=== PATIENT | female | born 1945 | race Caucasian/White ===

== ENCOUNTER 2018-03-05 17:51 | Inpatient (IN) | payer MEDICARE ==
[~2018-03-05 17:51] MED LIST: ISOVUE-370 76%-LOCM 1 ML ONE
[2018-03-05] MEDS ORDERED: Ondansetron HCl/PF 4 MG/2 ML Vial ONE (18:15)
[2018-03-05 18:38] LABS: #Eosinphils 0.1 thou/uL (0.0-0.7); #Lymphocytes 1.3 thou/uL (1.20-3.40); #Neutrophils 13.9 thou/uL (1.40-6.50); %Basophils 0.3 % (0.0-1.0); %Eosinophils 0.5 % (0.0-10.0); %Lymphocytes 7.8 % (21.0-51.0); %Monocytes 5.9 % (0.0-10.0); %Neutrophils 85.6 % (42.0-75.0); Hemoglobin 14.3 g/dL (12.0-16.0); Mean Corpuscular HGB CONC 34.5 g/dL (32.0-36.0); Mean Corpuscular Hemoglobin 30.9 pg (27.0-31.0); Mean Corpuscular Volume 89.7 fL (78.0-98.0); Mean Platelet Volume 8.6 fL (7.4-10.4); Platelet Count 226 thou/uL (130-400); RBC Distribution Width 12.2 % (11.5-14.5); Red Blood Cell (RBC) Count 4.61 mill/uL (4.20-5.40); White Blood Cell (WBC) Count 16.3 thou/uL (4.8-10.8)
[2018-03-05] MEDS ORDERED: Promethazine HCl 25 MG/ML VIAL ONE (18:51)
[2018-03-05 19:00] LABS: ALT (SGPT) 24 U/L (8-55); AST (SGOT) 25 U/L (5-34); Albumin 3.8 g/dL (3.4-4.8); Alkaline Phosphatase 87 U/L (40-150); Anion Gap 13 mmol/L (10-20); BUN (Urea Nitrogen) 20 mg/dL (9.8-20.1); Bilirubin, Total 0.5 mg/dL (0.2-1.2); Calc. Creatinine Clearance 0 mL/min (70-130); Calcium 10.5 mg/dL (7.8-10.44); Carbon Dioxide 22 mmol/L (23-31); Chloride 105 mmol/L (98-107); Estimated GFR-MDRD 75; Globulin 2.6 g/dL (2.4-3.5); Glucose 144 mg/dL (83-110); Lipase 519 U/L (8-78); Potassium 4.3 mmol/L (3.5-5.1); Protein, Total 6.4 g/dL (6.0-8.3); Sodium 136 mmol/L (136-145)
[2018-03-05 19:05] LABS: CKMB 3.2 ng/mL (0-6.6); Troponin I Less than 0.010 ng/mL (< 0.028)
--- NOTE | 2018-03-05 19:29 | RAD ---
AP VIEW OF THE CHEST: 03/05/18 INDICATION: Complains of abdominal pain, epigastric abdominal pain and chest pain. IMPRESSION: No acute cardiopulmonary abnormality. COMMENTS: Heart size is upper limits of normal. No consolidation, pleural effusion or pneumothorax is evident. No acute osseous abnormality is evident. POS: [facility]
[2018-03-05] MEDS ORDERED: Metoclopramide HCl 10 MG/2 ML VIAL ONE (19:39)
[2018-03-05 21:18] LABS: Bilirubin Negative (Negative); Blood, Urine Negative (Negative); Clarity CLEAR (Clear); Glucose, Urine (Dipstick) 250 mg/dL (Negative); Leukocyte Negative (Negative); Nitrite Negative (Negative); Protein, Urine (Dipstick) Trace mg/dL (Neg-Trace); Specific Gravity, Urine 1.028 (1.002-1.036)
--- NOTE | 2018-03-05 21:56 | CT ---
CT OF THE ABDOMEN AND PELVIS 03/05/18 COMPARISON: None. HISTORY: Nausea, vomiting and pain. TECHNIQUE: Serial axial CT imaging obtained at 5 mm intervals from lung bases through pubic symphysis with IV c ontrast. Coronal reformatted imaging obtained. FINDINGS: There is a questionable incompletely imaged nodule within the left lower lobe measuring 9 mm on image 1. Coronary arterial calcification is present, incompletely imaged. Linear density in both lung base s suggest scar and/or atelectasis. There is no free intraperitoneal air. The gallbladder is surgically absent. The hepatic parenchyma is hypodense suggesting steatosis. Splenic granulomata are noted. The pancreas is somewhat ill-defined and hypodense, particularly the region of the pancreatic head an d uncinate process. There is small volume peripancreatic fluid as well. The adrenal glands and the ki dneys demonstrate no acute findings. There are numerous hypodense lesions associated with the left ki dney, the larger lesions demonstrating Hounsfield units consistent with cysts, measuring up to 6.3 cm . Smaller hypodense left renal lesions are too small to characterize. There is inflammatory stranding and small volume fluid in the mary lou hepatis and in the periduodenal r egion. The duodenum appears thickened in the region of the pancreatic head, nonspecific. No abscess i s noted. No extraluminal gas is seen. There is no evidence for bowel obstruction. There is a lobulated complex ventral hernia in the perium bilical region with a component which contains fat in the anterior midline measuring up to 5.1 cm and a component extending into the subcutaneous fat of the mid left abdomen. This component measures 11. 4 cm and contains a large portion of the transverse colon, with no associated inflammatory change or evidence of obstruction. There is multifocal atherosclerotic calcification of the abdominal aorta and its branches. No lymphad enopathy is evident within the abdomen or pelvis. Review of the osseous structures demonstrates multilevel lumbar spine degenerative change with no wor risome lytic or blastic bone lesion. IMPRESSION: 1. Pancreas is ill-defined, especially in the region of the pancreatic head and uncinate process . There is small volume fluid adjacent to the pancreas as well as the duodenum and there is duodenal wall thickening with inflammatory change in the right upper quadrant. These findings may signify panc reatitis and/or duodenitis on the basis of peptic ulcer disease. Followup imaging following treatment is advised to exclude an underlying mass lesion. 2. Incompletely assessed pulmonary nodule within the left lower lobe for which dedicated nonemer gent followup chest CT is advised. 3. Complex ventral hernia. Code T and Code LN POS: [facility]
[2018-03-05] MEDS ORDERED: Sodium Chloride 0.9% 1,000 ML IV SCH (23:12)
[2018-03-05] MEDS ORDERED: Ondansetron HCl/PF 4 MG/2 ML Vial IVP PRN (23:14)
[2018-03-05 23:48] VITALS: BMI 33.4
[2018-03-06] MEDS ORDERED: Senokot 8.6 MG TAB PO PRN (02:45)
[2018-03-06] MEDS ORDERED: Dextrose 5% in Water 1,000 ML IV PRN (02:45)
[2018-03-06] MEDS ORDERED: ALPRAZolam 0.25 MG TAB PO PRN (02:45)
[2018-03-06] MEDS ORDERED: HumaLOG 300 UNITS/3 ML VIAL SC PRN (02:45)
[2018-03-06] MEDS ORDERED: Sodium Chloride 0.9% 1,000 ML IV SCH (02:45)
[2018-03-06] MEDS ORDERED: Guaifenesin DM 100-10/5 ML UDCUP PO PRN (02:45)
[2018-03-06] MEDS ORDERED: Dextrose 50% Abboject 50 ML SYRINGE SLOW IVP PRN (02:45)
[2018-03-06] MEDS ORDERED: Ondansetron HCl/PF 4 MG/2 ML Vial IVP PRN (02:45)
[2018-03-06] MEDS: Sodium Chloride 0.9% 1,000 ML IV SCH ×3 (03:26→19:33)
--- NOTE | 2018-03-06 04:41 | HP ---
REASON FOR ADMISSION: Possible acute pancreatitis, intractable nausea, vomiting , left upper quadrant pain. HISTORY OF PRESENT ILLNESS: The patient gives history of going to restroom and sleeping in a recliner after that. She developed right lower rib cage pain. She was nauseated and started vomiting. She did this multiple times to the point that she was dry heaving. This was unrelenting, the patient's cousin called EMS and was brought here. The right lower ribcage pain is 4-5/10 in intensity and is constant pain. Currently, has completely resolved after receiving morphine in the ER. Her last bowel movement was yesterday. She had in fact 2 times and it was normal. The patient mentions she has had 2 prior episodes of pancreatitis, but had pain in her left upper quadrant then. The first episode was in 01/2016. The second episode in 02/2017 when she had her gallbladder removed. PAST MEDICAL AND SURGICAL HISTORY: Hypertension, diabetes mellitus type 2, biliary pancreatitis with cholecystectomy done in 02/2017, prior episode of pancreatitis in 01/2016, dyslipidemia, prior stent placed in 01/2016 at [facility] in [place] for coronary artery disease, depression, anxiety, history of mild CVA in 2005, cataract surgery, x2, retina surgery as well. CURRENT MEDICATIONS: The patient is on atorvastatin 20 mg every other day, aspirin 81 mg p.o. daily, paroxetine 40 mg p.o. q.a.m., Protonix 40 mg daily, losartan 25 mg daily, Lopressor extended release 25 mg daily, metformin 1000 mg p.o. twice daily, alprazolam 0.25 mg p.o. p.r.n. for anxiety, Plavix 75 mg p.o. daily. ALLERGIES: Allergic to PENICILLIN and SULFA. PERSONAL HISTORY: Does not abuse alcohol or drugs. No history of smoking. She lives with her son and [id number] in [place]. FAMILY HISTORY: Mother at the age of 93 years. She has had history of CVA. Father of lung cancer at the age of 59 years. He was a heavy smoker and also worked with asbestos. REVIEW OF SYSTEMS: The following complete review of systems was negative, unless otherwise mentioned in the HPI or below: Constitutional: Weight loss or gain, ability to conduct usual activities. Skin: Rash, itching. Eyes: Double vision, pain. ENT/Mouth: Nose bleeding, neck stiffness, pain, tenderness. Cardiovascular: Palpitations, dyspnea on exertion, orthopnea. Respiratory: Shortness of breath, wheezing, cough, hemoptysis, fever or night sweats. Gastrointestinal: Poor appetite, abdominal pain, heartburn, nausea, vomiting, constipation, or diarrhea. Genitourinary: Urgency, frequency, dysuria, nocturia. Musculoskeletal: Pain, swelling. Neurologic/Psychiatric: Anxiety, depression. Allergy/Immunologic: Skin rash, bleeding tendency. CODE STATUS: FULL. Power of corporate associate attorney is her son, Mr. Fisher. PHYSICAL EXAMINATION: GENERAL: The patient is a 72-year-old female who is currently not in any acute distress. VITAL SIGNS: On arrival, blood pressures of 174/66, pulse 66 per minute, respiratory rate 16 per minute, temperature 97.9 degrees Fahrenheit, and saturating 84% on room air. NECK: Supple, no elevated JVD. HEENT: Eyes: Extraocular muscles intact. Pupils reacting to light. Oral cavity: Mucous membranes are dry. No exudates or congestion. CARDIOVASCULAR SYSTEM: S1, S2 heard. Regular rhythm. RESPIRATORY SYSTEM: Air entry 2+ bilateral. No rales or rhonchi. ABDOMEN: Soft, bowel sounds heard. There is mild tenderness in the right upper quadrant, otherwise no guarding or rigidity. No rebound. Bowel sounds are heard. EXTREMITIES: No peripheral edema or calf tenderness. VASCULAR SYSTEM: Peripheral pulses 1+ bilateral, no ischemic ulcerations or gangrene. CENTRAL NERVOUS SYSTEM: No gross focal deficits noted. The patient is alert, awake, oriented well. PSYCHIATRIC SYSTEM: The patient's mood is euthymic. No hallucinations or delusions. LABORATORY DATA AND X-RAY FINDINGS: EKG done shows normal sinus rhythm at 70 beats per minute. There is Q-wave seen in V1 and V2. White count of 16, H&H 14 and 41, platelet count 226 with 85% neutrophils, serum bicarbonate 22, BUN 20 , creatinine 0.7, serum glucose 144, calcium is 10.5. AST, ALT, alkaline phosphatase within normal limits, total bilirubin 0.5. Cardiac enzymes x1 is negative. Lipase is 519. Chest x-ray done shows no acute cardiopulmonary abnormalities. CT of the abdomen and pelvis done shows there is ill-defined region in the pancreatic head and uncinate process. There is small volume fluid adjacent to the pancreas as well as the duodenum and there is duodenal wall thickening with inflammatory change in the right upper quadrant. There is also pulmonary nodule seen within the left lower lobe. There is a complex ventral hernia as well. CLINICAL IMPRESSION AND PLAN: The patient will be admitted to medical floor for acute pancreatitis. She has had 2 prior episodes of likely biliary pancreatitis with cholecystectomy done in 02/2017. We will obtain ultrasound of the right upper quadrant to see for choledocholithiasis. She is wanting to drink some liquids now and we will place her on clear liquid diet. We will continue her aspirin, Plavix, Cozaar, Toprol-XL, paroxetine at her home dose. She will be on normal saline at 125 mL per hour. Lantus 15 units subcu twice daily in view of her recent imaging with contrast. Metformin will be held. We will repeat her lipase level to see if it recedes. Lipid profile will be obtained as well now. We will consult Dr. Contreras who is typing section chief for Gastroenterology to get an opinion regarding her findings on the CAT scan and her pain in the right ribcage area with intractable nausea, vomiting. Code status was discussed with her and she is a FULL CODE. Power of corporate associate attorney is her son. HEAVENLY
[2018-03-06 04:56] LABS: #Lymphocytes 1.4 thou/uL (1.20-3.40); #Monocytes 0.8 thou/uL (0.11-0.59); #Neutrophils 12.8 thou/uL (1.40-6.50); %Basophils 0.2 % (0.0-1.0); %Eosinophils 0.2 % (0.0-10.0); %Lymphocytes 9.3 % (21.0-51.0); %Monocytes 5.5 % (0.0-10.0); %Neutrophils 84.8 % (42.0-75.0); Hemoglobin 13.3 g/dL (12.0-16.0); Mean Corpuscular HGB CONC 33.6 g/dL (32.0-36.0); Mean Corpuscular Hemoglobin 30.1 pg (27.0-31.0); Mean Corpuscular Volume 89.5 fL (78.0-98.0); Mean Platelet Volume 9.1 fL (7.4-10.4); Platelet Count 238 thou/uL (130-400); RBC Distribution Width 12.3 % (11.5-14.5); Red Blood Cell (RBC) Count 4.42 mill/uL (4.20-5.40); White Blood Cell (WBC) Count 15.1 thou/uL (4.8-10.8)
[2018-03-06 05:15] LABS: ALT (SGPT) 21 U/L (8-55); AST (SGOT) 18 U/L (5-34); Albumin 3.8 g/dL (3.4-4.8); Alkaline Phosphatase 79 U/L (40-150); Anion Gap 12 mmol/L (10-20); BUN (Urea Nitrogen) 17 mg/dL (9.8-20.1); Bilirubin, Total 0.7 mg/dL (0.2-1.2); Calc. Creatinine Clearance 81 mL/min (70-130); Carbon Dioxide 27 mmol/L (23-31); Cardiac Risk 3.4 (Less than 4.5); Chloride 99 mmol/L (98-107); Cholesterol 190 mg/dl (< 200 Desired); Estimated GFR-MDRD 66; Globulin 2.4 g/dL (2.4-3.5); Glucose 339 mg/dL (83-110); HDL Cholesterol 56 mg/dL (>60 Neg Risk); LDL Cholesterol, Calculated 121 mg/dL; Lipase 207 U/L (8-78); Potassium 4.5 mmol/L (3.5-5.1); Protein, Total 6.2 g/dL (6.0-8.3); Sodium 133 mmol/L (136-145); Triglycerides 66 mg/dL (Less than 150)
[2018-03-06] MEDS: PARoxetine 20 MG TAB PO SCH (08:17)
[2018-03-06] MEDS: Famotidine 20 MG TAB PO SCH ×2 (08:19→20:25)
[2018-03-06] MEDS: Aspirin 81 mg Enteric Coated Tablet PO SCH (08:20)
[2018-03-06] MEDS: Losartan 25 MG TAB PO SCH (08:20)
[2018-03-06] MEDS: Clopidogrel Bisulfate 75 MG TAB PO SCH (08:21)
[2018-03-06] MEDS: HumaLOG 300 UNITS/3 ML VIAL SC PRN ×3 (08:30→16:36)
[2018-03-06] MEDS: Enoxaparin Sodium 40 MG/0.4 ML SYRINGE SC SCH (08:43)
[2018-03-06] MEDS: Acetaminophen 325 MG TAB PO PRN (09:26)
--- NOTE | 2018-03-06 09:39 | ULT ---
ABDOMEN ULTRASOUND: HISTORY: Abdominal pain. Questionable choledocholithiasis. Acute pancreatitis. Recent fluid noted adjacent to the head of the pancreas. COMPARISON: None. CORRELATION: CT abdomen and pelvis from 03/05/2018. TECHNIQUE: Utilizing a Multi-Hertz transducer, sonographic imaging of the abdomen is performed in the longitudin al and transverse planes. FINDINGS: The visualized aorta has a normal caliber. The visualized IVC is unremarkable. The pancreas is essentially obscured by bowel gas. The hepatic parenchyma has a normal echotexture. No hepatic masses or intrahepatic biliary dilatatio n. Contour of the hepatic margin is maintained. Right hepatic flow measures 17.3 cm. The main portal vein is patent. Appropriate directional flow. There is right renal cortical thinning. A small amount of right perirenal fluid is suspected. No hy dronephrosis. The right kidney measures 10 x 5.2 x 4.5 cm. There is nodularity associated with the left kidney. Lobulation is identified on the recent CT. There is evidence of renal cysts. Nonobstr ucting calcifications are noted in the left kidney. No hydronephrosis. The left kidney measures 11. 4 x 4 x 4.3 cm. The maintenance chief suggests a possible solid nodule in the upper pole of the right kidney. Correlating with the recent CT, a definite nodule is not appreciated. Rather, there appears to be lobulation, po ssibly due to areas of scarring in the right upper lobe. The gallbladder is surgically absent. Limited evaluation of the common bile duct. The spleen has an overall normal echotexture. A calcified granuloma is noted. The spleen measures 1 0 cm. IMPRESSION: 1. Surgically absent gallbladder. 2. Suboptimal evaluation of the pancreas. 3. Bilateral renal cortical thinning and nodularity, suggesting areas of renal scar. 4. Bilaterally, no hydronephrosis. POS: [facility]
[2018-03-06] MEDS: Insulin Glargine 15 UNITS in Pre-Filled Syringe 1 EACH SC SCH ×2 (17:11→20:25)
--- NOTE | 2018-03-06 23:29 | PDOC.PN ---
- Objective Resuscitation Status: Resuscitation Status FULL:Full Resuscitation Vital Signs & Weight: Vital Signs (12 hours) Temp Pulse Resp BP Pulse Ox 03/06/18 20:00 98.2 F 73 16 03/06/18 19:59 98.2 F 73 16 130/76 95 03/06/18 15:45 98.0 F 80 18 128/88 91 L 03/06/18 14:17 93 L 03/06/18 13:47 98.2 F 88 18 135/84 03/06/18 11:31 97.9 F 83 18 126/75 95 Weight Weight 190 lb 11.2 oz I&O: 03/05/18 03/06/18 03/07/18 06:59 06:59 06:59 Intake Total 339 Output Total 700 Balance -361 Result Diagrams: 03/06/18 04:14 03/06/18 04:14 Additional Labs: Accuchecks 03/06/18 03/06/18 03/06/18 20:00 15:47 10:48 POC Glucose 193 H 283 H 317 H 03/05/18 23:25 POC Glucose 281 H Dx/Plan - Plan * .
[2018-03-07] MEDS: Acetaminophen 325 MG TAB PO PRN (01:48)
[2018-03-07] MEDS: Enoxaparin Sodium 40 MG/0.4 ML SYRINGE SC SCH (07:39)
[2018-03-07] MEDS: Losartan 25 MG TAB PO SCH (07:52)
[2018-03-07] MEDS: PARoxetine 20 MG TAB PO SCH (07:52)
[2018-03-07] MEDS: Famotidine 20 MG TAB PO SCH (07:52)
[2018-03-07] MEDS: Insulin Glargine 15 UNITS in Pre-Filled Syringe 1 EACH SC SCH (09:11)
[2018-03-07] MEDS: Clopidogrel Bisulfate 75 MG TAB PO SCH (09:16)
[2018-03-07] MEDS: Aspirin 81 mg Enteric Coated Tablet PO SCH (09:16)
[2018-03-07 11:22] VITALS: BP 110/70; TEMP 98.4
[2018-03-07] MEDS: HumaLOG 300 UNITS/3 ML VIAL SC PRN ×2 (11:25→15:51)
--- NOTE | 2018-03-07 13:09 | CON ---
DATE OF CONSULTATION: 03/06/2018 REASON FOR CONSULTATION: Abdominal pain, abnormal CAT scan. HISTORY OF PRESENT ILLNESS: Ms. Samayoa is a 72-year-old female who was admitted to the hospital from the emergency room yesterday for about 2-3 weeks of abdominal pain. It was in the upper abdomen predominantly, sometimes it goes to her back. She states it has progressively got worse to the poin t where she was having some nausea and vomiting today and she came to the emergency room. Previously , she was eating okay, which did not bother her, but she states she really been eating well, having a good appetite. Despite this, the emergency room notes, however, she had some nausea and upset stoma ch last night. She reports she sees Dr. Damon as her primary doctor. She has not seen her about this problem as this has been new. She has not really tried any medications at home. Apparently, the natalia n in the last day or so, it gotten much worse with her having some dry heaves and vomiting at home an d relative summoned EMS, which led to her admission. She states the pain is still present despite pa in medications, but little bit better. When asked about prior bouts of this, she said that she has n ot had any episodes; however, in the admission H&P, it is noted that she stated she had previous bout s of pancreatitis twice back in 2015 and 2016, that is when her gallbladder was removed. To me, she notes that she does not recall that. She denies any weight loss. She states that she has a little bit more loose stool recently. She has had no fever or chills. PAST MEDICAL HISTORY: Hypertension, type 2 diabetes, prior pancreatitis in 02/2007, possibly some pa ncreatitis in 01/2016. She has had some coronary stent placed in the past, CVA in 2016, cataract beatriz brayan, , retina surgery. MEDICATIONS AT HOME: Atorvastatin, aspirin, paroxetine, Protonix, losartan, Lopressor, metformin, al prazolam, and Plavix, acetaminophen, and codeine. ALLERGIES: SULFA, HYDROCODONE, PENICILLIN, STRAWBERRIES. PRESENT MEDICATIONS: Tylenol, Xanax, Plavix, Lovenox, Pepcid, glucagon, Humalog, Cozaar, morphine. FAMILY HISTORY: No history of GI disorders, pancreatitis or GI malignancies. SOCIAL HISTORY: Negative for alcohol, drugs, or tobacco. REVIEW OF SYSTEMS: The patient denies stroke, headache, seizures. HEENT: She denies any eye pain, vision changes, hearing issues, throat problems, or swallowing problems or throat pain. GI: As per HPI, otherwise she denies any dysuria, frequency, urgency, melena, hematochezia, hematemesis or melen a. Respiratory: She denies any shortness of breath, chest pain, dyspnea, wheezing. Cardiac: Denie s any orthopnea, edema, palpitations, urinary symptoms, negative frequency, dysuria, urgency. Muscul oskeletal: Negative except for generalized weakness. Otherwise, review of systems as per documented by the admitting physician. PHYSICAL EXAMINATION: VITAL SIGNS: Temperature is 98, pulse 73, respirations 16, temperature 95, blood pressure 113/76. S he has been afebrile since admission. GENERAL: She is a pleasant lady. She does not know what day it is. She does know her name. She kn ows it is [facility]. She seems to be in no distress. HEENT: Oropharynx without lesions. NECK: Supple, without any adenopathy. Shows no icterus. There is no jaundice. There is no supracl avicular adenopathies. No cervical chain adenopathy. LUNGS: Clear. HEART: Regular rate and rhythm. ABDOMEN: Soft. She has mild tenderness in right lower quadrant with palpation. There is no rebound or guarding. EXTREMITIES: Reveal no clubbing, cyanosis, or edema. SKIN: Without rash or lesions. There is a scar in the lower abdomen, this is from the previous hyst erectomy. NEUROLOGIC: Intact cranial nerves. LABORATORY AND X-RAY FINDINGS: White count was 16 on admission, 15 today. Platelet count of 226 on admission, 238 today. Hemoglobin 13.3 yesterday, hemoglobin 14.3 today. Urine is normal. IMAGING STUDIES: Ultrasound was normal with no evidence of gallbladder, no ductal dilatation. CAT s can shows some inflammatory stranding involving the mary lou hepatis and this peritoneal region. There was thickening in the duodenum cystic lesion or cystic changes in the pancreatic head, it is un clear if this is related to her diet or just inflammation. There is ventral hernia in the periumbili sam region with some fat and there is colon there too, but there are no signs of obstruction, multifo sam atherosclerotic vessel disease. ASSESSMENT: Several days of abdominal pain, nausea, vomiting, upper abdomen with CAT scan changes with some infla mmation in the head of the pancreas, it is unclear with her prior history of pancreatitis, whether th is change is going to be a pseudocyst or possibly she has some type of cystic pancreatic neoplasia in the area of pancreatic mass with the duodenal wall thickening is always a possibility of a duodenal ulcer, but this is less likely. Presently, she is stable. PLAN: I would recommend an EGD tomorrow to evaluate the duodenum inflammation in this area. If this is nondiagnostic, MRCP would be the next step.
--- NOTE | 2018-03-07 13:36 | PRG ---
DATE OF SERVICE: 03/07/2019 Ms. Samayoa feels well. She wants to go home today. She is refusing EGD. PHYSICAL EXAMINATION: VITAL SIGNS: Temperature is 98.4, pulse 86, blood pressure 110/70. ABDOMEN: Soft, nontender. LUNGS: Lungs are clear. LABORATORY DATA: No labs were drawn today. ASSESSMENT: Mild pancreatitis, seemingly clinically improved; however, no labs were drawn today. I had ordered an EGD on her for today secondary to some atypical features of inflammation of the duoden al sweep, but she does not want to proceed with that and refuses this study. RECOMMENDATIONS: I think you can advance her diet. Send her home with a PPI. Alcohol avoidance. S he has a primary physician and lobby attendant in [place], [place] and she would like to follow up there. She does not need a follow up with me. I recommended that she get a followup CAT scan.
== END 2018-03-07 17:12 | disposition home or self-care (01) | DRG 440 ==
LOC: ERS 17:51 → OBSVTOIN 23:03 → 2SW 23:03 → T4-A 03-06 06:25
PROVIDERS: ADMIT Internal Medicine; ATTEND Internal Medicine
DX: K85.90 Acute pancreatitis without necrosis or infection, unspecified (principal); I10 Essential (primary) hypertension; E11.9 Type 2 diabetes mellitus without complications; F41.8 Other specified anxiety disorders; R93.3 Abnormal findings on diagnostic imaging of other parts of digestive tract; Z90.49 Acquired absence of other specified parts of digestive tract; Z86.73 Personal history of transient ischemic attack (TIA), and cerebral infarction without residual deficits; Z53.29 Procedure and treatment not carried out because of patient's decision for other reasons; Z95.5 Presence of coronary angioplasty implant and graft; Z79.02 Long term (current) use of antithrombotics/antiplatelets; Z79.4 Long term (current) use of insulin; Z79.891 Long term (current) use of opiate analgesic; Z88.5 Allergy status to narcotic agent; Z88.0 Allergy status to penicillin; Z88.7 Allergy status to serum and vaccine
CPT/HCPCS: 36415; 36416; 71045; 74177; 76700; 80053; 80061; 81003; 82553; 83690; 84484; 85025; 93005; 96365; 96375; J1650; J2270; J2405; J2550; J2765

== ENCOUNTER 2018-12-09 14:02 | Inpatient (IN) | payer MEDICARE ==
[2018-12-09] MEDS ORDERED: Zolpidem Tartrate 5 MG TAB PO PRN (16:12)
[2018-12-09] MEDS ORDERED: Dextrose 50% Abboject 50 ML SYRINGE SLOW IVP PRN (16:12)
[2018-12-09] MEDS ORDERED: Ondansetron ODT 4 MG TAB PO PRN (16:12)
[2018-12-09] MEDS ORDERED: Acetaminophen 325 MG TAB PO PRN (16:12)
[2018-12-09] MEDS ORDERED: Dextrose 5% in Water 1,000 ML IV PRN (16:12)
--- NOTE | 2018-12-09 17:46 | HP ---
PRIMARY CARE PHYSICIAN: Kathia Sabillon in [place]. She is visiting here. She was referred to the [facility] by [facility] for pancreatitis. Three days ago, she had developed nausea. She had emesis x1 with some upper back pain radiating to her back. They came and went and took some antacids with no relief. She stated it got worse every night. She had a hard chill last night and fell twice, still has some paroxysmal abdominal pain and nausea. No hematemesis. No diarrhea. She has a history of recurrent pancreatitis starting in 2015, had a cholecystectomy for pancreatitis in 2016, was admitted to our facility in the summer of 2018 with pancreatitis. She has diabetes mellitus type 2, hypertension, coronary artery disease with a stent in 2015, history of anxiety, depression, and dyslipidemia. She had a mild CVA in 2005, with no residual. PAST SURGICAL HISTORY: Surgeries include aforementioned cholecystectomy, a cardiac cath with PCI, cataract surgery, x2, and retina surgery. CURRENT MEDICATIONS: 1. Metformin 1 g twice a day. 2. Gabapenten 300 mg tid. 3. Metoprolol-XL 25 once a day. 4. Plavix 75 mg a day. 5. Aspirin 81 mg a day. 6. Paxil 40 mg a day. 7. Losartan 25 mg a day. 8. Humulin 70/30, 42 units in the morning and 22 in the p.m. 9. She takes sliding scale regular insulin. ALLERGIES: PENICILLIN AND SULFA. FAMILY HISTORY: Multiple CVAs on her mother's side. She had 2 aunts with diabetes. She had a sibling, who is with coronary artery disease. She is . Full code status. Next of kin is her son, Phillip Epperson. She is a nontobacco and non-alcohol user. REVIEW OF SYSTEMS: GENERAL: Some malaise, fatigue, and lightheadedness. She has fallen, but no syncope. She has had some headaches with the present illness. EYES: No double vision, blurred vision, or flashing of lights. EAR, NOSE, AND THROAT: No ear pain or drainage. No nasal bleeding. No trouble swallowing. CARDIAC: No chest pain, orthopnea, or paroxysmal nocturnal dyspnea. RESPIRATIONS: No cough wheezing or asthma. GASTROINTESTINAL: See present illness. GENITOURINARY: No hematuria or dysuria. MUSCULOSKELETAL: No swelling. She has chronic back and hip pain. NEUROLOGIC: As mentioned in past medical history, she had a mild CVA with no residual in the past. PSYCHIATRIC: Anxiety and depression. SKIN: She has chronic yeast infection under her breast and under her panniculus. HEME/LYMPH: No tender or swollen lymph nodes in the axilla, inguinal, cervical area. PHYSICAL EXAMINATION: GENERAL: She is alert, pleasant, cooperative lady, not in any distress at the moment. VITAL SIGNS: Blood pressure 105/62, pulse 92, respirations 20, and temperature 98.2. HEAD, EYES, EARS, NOSE, AND THROAT: Revealed pupils equal and round with implants. Extraocular movements are intact. Sclerae are white. Tympanic membranes clear. Nose is clear. Oral mucous membranes are dry. Dental hygiene is good. NECK: No jugular venous distention, adenopathy, or thyromegaly. CHEST: Clear to auscultation and percussion. HEART: Regular rate and rhythm. First and second heart sounds are clear. There are no appreciated murmurs or gallops. ABDOMEN: Mildly tender in the epigastrium. Bowel sounds are present. There are no palpable hepatosplenomegaly or other masses. No bruits. EXTREMITIES: Reveal no cyanosis, clubbing, or edema. PULSES: Carotid, radial, femoral, and dorsalis pedis pulses palpable and symmetric. SKIN: Warm and dry. She does have the aforementioned monilia like lesions under both breast and her panniculus. HEME/LYMPH: No tender or swollen lymph nodes in the axilla, inguinal, cervical area. No petechial hemorrhages. NEUROLOGIC: Cranial nerves 2 through 12 are intact. Moves all extremities. IMAGING DATA: CT of the abdomen and pelvis, some peripancreatic inflammatory stranding, scattered calcifications in the pancreas, enhancing left renal mass worrisome for recent renal cell carcinoma, apparently has been noted on previous exam. Radiology was suggested an adrenal nodule. This films were reviewed by me. A CT of the chest and thorax was also done. No suggestion of pulmonary embolus. Films reviewed by me. EKG, regular sinus rhythm, no ST-T abnormalities reviewed by me. LABORATORY DATA: Done in [place]. CBC; white count 8.5, hemoglobin 11.9, platelet count 243,000 with a mild left shift towards neutrophilia. Comprehensive metabolic profile, liver function tests normal. Lytes are normal except for a CO2 of 20, BUN 25, creatinine 1.12. Lactic acid 1.5 and lipase 291. ADMITTING DIAGNOSES: Acute relapsing pancreatitis, diabetes mellitus type 2, coronary artery disease, hypertension, acute kidney injury. PLAN: 1. Clear liquids. 2. IV fluids. 3. Accu-Chek, sliding scale. 4. Repeat CBC, basic metabolic profile, and lipase in the morning. 5. Morphine sulfate for pain. 6. Selected home medicines with sips of water. DISCUSSION: The patient with at least 4 episodes of pancreatitis now with scattered calcifications suggesting chronic relapsing pancreatitis. We will treat with the usual basic bowel rest, IV fluids, antiemetics, analgesics, and expect an observation. Job ID: [id number] [facility]
[2018-12-09] MEDS ORDERED: Morphine 4 MG/ML VIAL ONE (18:14)
[2018-12-09] MEDS: Sodium Chloride 0.9% 1,000 ML IV SCH (19:39)
[2018-12-09] MEDS: metFORMIN 500 MG TAB PO SCH (19:39)
[2018-12-09 19:45] VITALS: BMI 34.0
[2018-12-10] MEDS: Morphine 4 MG/ML VIAL SLOW IVP PRN ×5 (00:18→18:10)
[2018-12-10] MEDS: Sodium Chloride 0.9% 1,000 ML IV SCH ×3 (00:19→18:17)
[2018-12-10] MEDS: Insulin Regular 300 UNITS/3 ML VIAL SC PRN ×3 (05:50→16:43)
[2018-12-10] MEDS: Aspirin 81 mg Enteric Coated Tablet PO SCH (07:49)
[2018-12-10] MEDS: metFORMIN 500 MG TAB PO SCH ×2 (07:49→16:42)
[2018-12-10] MEDS: Clopidogrel Bisulfate 75 MG TAB PO SCH (07:49)
[2018-12-10] MEDS: PARoxetine 20 MG TAB PO SCH (07:49)
[2018-12-10] MEDS: Enoxaparin Sodium 40 MG/0.4 ML SYRINGE SC SCH (07:50)
[2018-12-10] MEDS ORDERED: Eucerin (Mineral Oil/Petrolatum,White) 30 gm Jar TOP PRN (07:53)
[2018-12-10] MEDS ORDERED: Ondansetron PF 4 MG/2 ML Vial IVP PRN (07:53)
[2018-12-10] MEDS ORDERED: Sodium Chloride 0.65% Nasal 44 ML BOT EA NARE PRN (07:53)
[2018-12-10] MEDS ORDERED: Loratadine 10 MG TAB PO PRN (07:53)
[2018-12-10] MEDS ORDERED: Artificial Tears 18 DROP/0.9 ML EA EYE PRN (07:53)
[2018-12-10] MEDS ORDERED: Cepastat Lozenges 1 LOZ PO PRN (07:53)
[2018-12-10] MEDS ORDERED: Senokot S 8.6-50 MG TAB PO PRN (07:53)
[2018-12-10] MEDS ORDERED: hydrALAZINE 20 MG/ML VIAL SLOW IVP PRN (07:53)
[2018-12-10] MEDS ORDERED: Diabetic Tussin 200 MG/10 ML UDCUP PO PRN (07:53)
[2018-12-10] MEDS ORDERED: Loperamide HCl 2 MG CAP PO PRN (07:53)
[2018-12-10 08:06] LABS: #Basophils 0.1 thou/uL (0.0-0.2); #Eosinphils 0.2 thou/uL (0.0-0.7); #Lymphocytes 1.2 thou/uL (1.20-3.40); #Monocytes 1.1 thou/uL (0.11-0.59); #Neutrophils 6.8 thou/uL (1.40-6.50); %Basophils 0.6 % (0.0-1.0); %Eosinophils 2.1 % (0.0-10.0); %Monocytes 11.7 % (0.0-10.0); %Neutrophils 72.6 % (42.0-75.0); Hemoglobin 11.6 g/dL (12.0-16.0); Mean Corpuscular HGB CONC 32.5 g/dL (32.0-36.0); Mean Corpuscular Hemoglobin 29.1 pg (27.0-31.0); Mean Corpuscular Volume 89.6 fL (78.0-98.0); Mean Platelet Volume 8.8 fL (7.4-10.4); Platelet Count 287 thou/uL (130-400); Red Blood Cell (RBC) Count 3.99 mill/uL (4.20-5.40); White Blood Cell (WBC) Count 9.3 thou/uL (4.8-10.8)
[2018-12-10] MEDS: Losartan 25 MG TAB PO SCH (08:11)
[2018-12-10 08:30] LABS: ALT (SGPT) 15 U/L (8-55); AST (SGOT) 18 U/L (5-34); Albumin 3.2 g/dL (3.4-4.8); Alkaline Phosphatase 70 U/L (40-150); Anion Gap 9 mmol/L (10-20); BUN (Urea Nitrogen) 19 mg/dL (9.8-20.1); Bilirubin, Direct 0.2 mg/dL (0.1-0.3); Bilirubin, Total 0.3 mg/dL (0.2-1.2); CRP (Inflammatory) 10.43 mg/dL (= or < 0.5); Calc. Creatinine Clearance 80 mL/min (70-130); Calcium 9.8 mg/dL (7.8-10.44); Carbon Dioxide 25 mmol/L (23-31); Chloride 106 mmol/L (98-107); Estimated GFR-MDRD 68; Glucose 181 mg/dL (83-110); Lipase 143 U/L (8-78); Magnesium 1.5 mg/dL (1.6-2.6); Phosphorus 2.3 mg/dL (2.3-4.7); Potassium 3.9 mmol/L (3.5-5.1); Sodium 136 mmol/L (136-145)
[2018-12-10] MEDS: Gabapentin 300 MG CAP PO SCH ×3 (08:34→20:21)
[2018-12-10] MEDS ORDERED: Magnesium Sulfate 2 GM in Sodium Chloride 0.9% 100 ML IVPB SCH (08:45)
[2018-12-10] MEDS ORDERED: Magnesium 2 GM/50 ML 2 GM in Premix Bag 1 BAG IVPB SCH (08:45)
[2018-12-10] MEDS: ALPRAZolam 0.25 MG TAB PO PRN (08:59)
[2018-12-10] MEDS ORDERED: Polyethylene Glycol 3350 17 GM Packet PO SCH (10:15)
--- NOTE | 2018-12-10 11:40 | PDOC.PN ---
- Subjective Encounter Start Date: 12/10/18 Encounter Start Time: 08:00 -: old records requested/rev Patient seen and examined. No new complaints. No overnight events - Objective Resuscitation Status - Order Detail: 12/09/18 16:09 Resuscitation Status Routine Resuscitation Status: FULL: Full Resuscitation MAR Reviewed: Yes Vital Signs & Weight: Vital Signs (12 hours) Temp Pulse Resp BP Pulse Ox 12/10/18 08:00 98.3 F 88 18 108/52 L 93 L 12/10/18 04:00 97.6 F 82 18 112/64 94 L 12/10/18 00:00 98 F 84 18 118/70 93 L Weight Weight 186 lb 4 oz I&O: 12/09/18 12/10/18 12/11/18 06:59 06:59 06:59 Intake Total 1979 Balance 1979 Result Diagrams: 12/10/18 07:33 12/10/18 07:33 Additional Labs: Accuchecks 12/10/18 12/09/18 04:49 19:38 POC Glucose 206 H 108 Phys Exam - Physical Examination Constitutional: NAD HEENT: PERRLA, moist MMs, sclera anicteric Neck: no JVD, supple Respiratory: no wheezing, no rales, no rhonchi Cardiovascular: RRR, no significant murmur, no rub Gastrointestinal: soft, non-tender, no distention, positive bowel sounds Musculoskeletal: no edema, pulses present Neurological: non-focal, normal sensation Lymphatic: no nodes Psychiatric: normal affect, A&O x 3 Skin: no rash, normal turgor Dx/Plan (1) Acute pancreatitis Code(s): K85.90 - ACUTE PANCREATITIS WITHOUT NECROSIS OR INFECTION, UNSP Status: Acute (2) Hypomagnesemia Code(s): E83.42 - HYPOMAGNESEMIA Status: Acute (3) CAD (coronary artery disease) Code(s): I25.10 - ATHSCL HEART DISEASE OF [place] CORONARY ARTERY W/O ANG PCTRS Status: Chronic (4) Diabetes type 2, controlled Code(s): E11.9 - TYPE 2 DIABETES MELLITUS WITHOUT COMPLICATIONS Status: Chronic (5) Dyslipidemia Code(s): E78.5 - HYPERLIPIDEMIA, UNSPECIFIED Status: Chronic (6) Hypertension Code(s): I10 - ESSENTIAL (PRIMARY) HYPERTENSION Status: Chronic (7) Obesity (BMI 30.0-34.9) Code(s): E66.9 - OBESITY, UNSPECIFIED Status: Chronic - Plan cont current plan of care, PT/OT * advance to full liquid diet * replace magnesium * pain controlled * medication reviewed as below * symptomatic treatment * start PT. Review of Systems - Review of Systems ENT: negative: Ear Pain, Ear Discharge, Nose Pain, Nose Discharge, Nose Congestion, Mouth Pain, Mouth Swelling, Throat Pain, Throat Swelling, Other Respiratory: negative: Cough, Dry, Shortness of Breath, Hemoptysis, SOB with Excertion, Pleuritic Pain, Sputum, Wheezing Cardiovascular: negative: chest pain, palpitations, orthopnea, paroxysmal nocturnal dyspnea, edema, light headedness, other Gastrointestinal: negative: Nausea, Vomiting, Abdominal Pain, Diarrhea, Constipation, Melena, Hematochezia, Other Genitourinary: negative: Dysuria, Frequency, Incontinence, Hematuria, Retention , Other Musculoskeletal: Back Pain. negative: Neck Pain, Shoulder Pain, Arm Pain, Hand Pain, Leg Pain, Foot Pain, Other - Medications/Allergies Allergies/Adverse Reactions: Allergies Allergy/AdvReac Type Severity Reaction Status Date / Time hydrocodone Allergy Emesis Verified 12/09/18 19:46 Penicillins Allergy Rash Verified 12/09/18 19:46 strawberry Allergy Verified 12/09/18 19:46 Sulfa (Sulfonamide Allergy Emesis Verified 12/09/18 19:46 Antibiotics) Medications: Current Medications Acetaminophen (Tylenol) 650 mg PO Q4H PRN PRN Reason: Headache/Fever/Mild Pain (1-3) Alprazolam (Xanax) 0.25 mg PO DAILY PRN PRN Reason: Anxiety Last Admin: 12/10/18 08:59 Dose: 0.25 mg Artificial Tears (Tears Naturale) 2 drop EA EYE PRN PRN PRN Reason: Dry Eyes Aspirin (Ecotrin) 81 mg PO DAILY [facility] Last Admin: 12/10/18 07:49 Dose: 81 mg Atorvastatin Calcium (Lipitor) 10 mg PO HS [facility] Clopidogrel Bisulfate (Plavix) 75 mg PO DAILY [facility] Last Admin: 12/10/18 07:49 Dose: 75 mg Dextrose/Water (Dextrose 50%) 25 gm SLOW IVP PRN PRN PRN Reason: Hypoglycemia Enoxaparin Sodium (Lovenox) 40 mg SC 0900 [facility] Last Admin: 12/10/18 07:50 Dose: 40 mg Gabapentin (Neurontin) 300 mg PO TID [facility] Last Admin: 12/10/18 08:34 Dose: 300 mg Glucagon (Glucagon) 1 mg IM PRN PRN PRN Reason: Hypoglycemia Guaifenesin (Robitussin Sf) 200 mg PO Q4H PRN PRN Reason: Cough Hydralazine HCl (Apresoline) 10 mg SLOW IVP Q4H PRN PRN Reason: SBP > 180 and HR < 70 Dextrose/Water (D5w) 1,000 mls @ 0 mls/hr IV .Q0M PRN PRN Reason: Hypoglycemia Sodium Chloride (Normal Saline 0.9%) 1,000 mls @ 125 mls/hr IV .Q8H [facility] Last Admin: 12/10/18 10:17 Dose: 1,000 mls Insulin Human Regular (Humulin R) 0 units SC .MODERATE SLIDING SC PRN PRN Reason: Moderate Correctional Scale Last Admin: 12/10/18 05:50 Dose: 4 unit Loperamide HCl (Imodium) 2 mg PO PRN PRN PRN Reason: Diarrhea/Loose Stools Loratadine (Claritin) 10 mg PO DAILYPRN PRN PRN Reason: Sinus Symptoms Losartan Potassium (Cozaar) 25 mg PO DAILY [facility] Last Admin: 12/10/18 08:11 Dose: Not Given Metformin HCl (Glucophage) 1,000 mg PO BID-[facility] Last Admin: 12/10/18 07:49 Dose: 1,000 mg Metoprolol Succinate (Toprol Xl) 25 mg PO DAILY [facility] Last Admin: 12/10/18 08:11 Dose: Not Given Mineral Oil/White Petrolatum (Eucerin Cream) 0 gm TOP BIDPRN PRN PRN Reason: Dry Skin Morphine Sulfate (Morphine) 4 mg SLOW IVP Q4H PRN PRN Reason: Pain Last Admin: 12/10/18 10:07 Dose: 4 mg Nystatin (Mycostatin Powder) 0 gm TOP BID [facility] Ondansetron HCl (Zofran Odt) 4 mg PO Q6H PRN PRN Reason: Nausea/Vomiting Last Admin: 12/09/18 19:53 Dose: 4 mg Ondansetron HCl (Zofran) 4 mg IVP Q6H PRN PRN Reason: Nausea/Vomiting Last Admin: 12/10/18 09:00 Dose: 4 mg Pantoprazole Sodium (Protonix) 40 mg PO DAILY [facility] Last Admin: 12/10/18 08:34 Dose: 40 mg Paroxetine HCl (Paxil) 40 mg PO DAILY [facility] Last Admin: 12/10/18 07:49 Dose: 40 mg Polyethylene Glycol (Miralax) 17 gm PO BID [facility] Polyethylene Glycol (Miralax) 17 gm PO NOW [facility] Stop: 12/10/18 12:15 Last Admin: 12/10/18 10:52 Dose: 17 gm Senna/Docusate Sodium (Senokot S) 2 tab PO BID PRN PRN Reason: Constipation Last Admin: 12/10/18 08:59 Dose: 2 tab Sodium Chloride ([place] Nasal [place] 0.65%) 0 ml EA NARE QIDPRN PRN PRN Reason: Nasal Congestion Sodium Chloride (Flush - Normal Saline) 10 ml IVF Q12HR [facility] Last Admin: 12/10/18 09:03 Dose: Not Given Sodium Chloride (Flush - Normal Saline) 10 ml IVF PRN PRN PRN Reason: Saline Flush Throat Lozenges (Cepastat Lozenges) 1 lupillo PO Q2H PRN PRN Reason: Sore Throat Zolpidem Tartrate (Ambien) 5 mg PO HSPRN PRN PRN Reason: Insomnia
[2018-12-10] MEDS: Atorvastatin Calcium 10 MG TAB PO SCH (20:21)
[2018-12-10] MEDS: Polyethylene Glycol 3350 17 GM Packet PO SCH (20:21)
[2018-12-10] MEDS: Nystatin Powder 15 GM BOT TOP SCH (20:22)
[2018-12-11] MEDS: Morphine 4 MG/ML VIAL SLOW IVP PRN ×6 (00:12→21:18)
[2018-12-11] MEDS: Sodium Chloride 0.9% 1,000 ML IV SCH ×4 (00:13→20:08)
[2018-12-11] MEDS: Insulin Regular 300 UNITS/3 ML VIAL SC PRN ×3 (05:28→17:05)
[2018-12-11] MEDS: Clopidogrel Bisulfate 75 MG TAB PO SCH (08:42)
[2018-12-11] MEDS: metFORMIN 500 MG TAB PO SCH ×2 (08:42→17:05)
[2018-12-11] MEDS: Gabapentin 300 MG CAP PO SCH ×3 (08:43→20:09)
[2018-12-11] MEDS: Polyethylene Glycol 3350 17 GM Packet PO SCH ×2 (08:43→20:08)
[2018-12-11] MEDS: PARoxetine 20 MG TAB PO SCH (08:43)
[2018-12-11] MEDS: Losartan 25 MG TAB PO SCH ×2 (08:43→09:03)
[2018-12-11] MEDS: Enoxaparin Sodium 40 MG/0.4 ML SYRINGE SC SCH (08:43)
[2018-12-11] MEDS: Aspirin 81 mg Enteric Coated Tablet PO SCH (08:43)
[2018-12-11] MEDS: Nystatin Powder 15 GM BOT TOP SCH ×2 (08:44→20:10)
[2018-12-11 08:54] LABS: #Eosinphils 0.2 thou/uL (0.0-0.7); #Lymphocytes 1.6 thou/uL (1.20-3.40); #Monocytes 0.7 thou/uL (0.11-0.59); #Neutrophils 5.8 thou/uL (1.40-6.50); %Basophils 0.2 % (0.0-1.0); %Eosinophils 2.6 % (0.0-10.0); %Monocytes 8.7 % (0.0-10.0); %Neutrophils 69.6 % (42.0-75.0); Hemoglobin 11.5 g/dL (12.0-16.0); Mean Corpuscular HGB CONC 31.6 g/dL (32.0-36.0); Mean Corpuscular Hemoglobin 28.7 pg (27.0-31.0); Mean Corpuscular Volume 90.6 fL (78.0-98.0); Mean Platelet Volume 8.5 fL (7.4-10.4); Platelet Count 283 thou/uL (130-400); RBC Distribution Width 11.9 % (11.5-14.5); Red Blood Cell (RBC) Count 4.01 mill/uL (4.20-5.40); White Blood Cell (WBC) Count 8.3 thou/uL (4.8-10.8)
[2018-12-11 09:21] LABS: Anion Gap 11 mmol/L (10-20); BUN (Urea Nitrogen) 6 mg/dL (9.8-20.1); Calc. Creatinine Clearance 93 mL/min (70-130); Calcium 9.2 mg/dL (7.8-10.44); Carbon Dioxide 24 mmol/L (23-31); Chloride 104 mmol/L (98-107); Estimated GFR-MDRD 80; Glucose 229 mg/dL (83-110); Lipase 102 U/L (8-78); Potassium 4.5 mmol/L (3.5-5.1); Sodium 134 mmol/L (136-145)
--- NOTE | 2018-12-11 09:41 | PDOC.PN ---
- Subjective Encounter Start Date: 12/11/18 Encounter Start Time: 08:30 Patient seen and examined. No new complaints. No overnight events - Objective Resuscitation Status - Order Detail: 12/09/18 16:09 Resuscitation Status Routine Resuscitation Status: FULL: Full Resuscitation MAR Reviewed: Yes Vital Signs & Weight: Vital Signs (12 hours) Temp Pulse Resp BP Pulse Ox 12/11/18 08:00 97.6 F 101 H 18 132/80 94 L Weight Weight 186 lb 4 oz I&O: 12/10/18 12/11/18 12/12/18 06:59 06:59 06:59 Intake Total 1979 4358 Balance 1979 4358 Result Diagrams: 12/11/18 08:36 12/11/18 08:36 Additional Labs: Accuchecks 12/11/18 12/10/18 12/10/18 05:30 19:32 16:32 POC Glucose 211 H 267 H 267 H 12/10/18 11:33 POC Glucose 253 H Phys Exam - Physical Examination Constitutional: NAD HEENT: PERRLA, moist MMs, sclera anicteric Neck: no JVD, supple Respiratory: no wheezing, no rales, no rhonchi Cardiovascular: RRR, no significant murmur, no rub Gastrointestinal: soft, non-tender, no distention, positive bowel sounds Musculoskeletal: no edema, pulses present Neurological: non-focal, normal sensation, moves all 4 limbs Lymphatic: no nodes Psychiatric: normal affect, A&O x 3 Skin: no rash, normal turgor Dx/Plan (1) Acute pancreatitis Code(s): K85.90 - ACUTE PANCREATITIS WITHOUT NECROSIS OR INFECTION, UNSP Status: Acute (2) Hypomagnesemia Code(s): E83.42 - HYPOMAGNESEMIA Status: Acute (3) CAD (coronary artery disease) Code(s): I25.10 - ATHSCL HEART DISEASE OF [place] CORONARY ARTERY W/O ANG PCTRS Status: Chronic (4) Diabetes type 2, controlled Code(s): E11.9 - TYPE 2 DIABETES MELLITUS WITHOUT COMPLICATIONS Status: Chronic (5) Dyslipidemia Code(s): E78.5 - HYPERLIPIDEMIA, UNSPECIFIED Status: Chronic (6) Hypertension Code(s): I10 - ESSENTIAL (PRIMARY) HYPERTENSION Status: Chronic (7) Obesity (BMI 30.0-34.9) Code(s): E66.9 - OBESITY, UNSPECIFIED Status: Chronic - Plan cont current plan of care, PT/OT * medication reviewed as below * symptomatic treatment * continue full liquid diet * pain control * reduce IVF. Review of Systems - Review of Systems ENT: negative: Ear Pain, Ear Discharge, Nose Pain, Nose Discharge, Nose Congestion, Mouth Pain, Mouth Swelling, Throat Pain, Throat Swelling, Other Respiratory: negative: Cough, Dry, Shortness of Breath, Hemoptysis, SOB with Excertion, Pleuritic Pain, Sputum, Wheezing Cardiovascular: negative: chest pain, palpitations, orthopnea, paroxysmal nocturnal dyspnea, edema, light headedness, other Gastrointestinal: negative: Nausea, Vomiting, Abdominal Pain, Diarrhea, Constipation, Melena, Hematochezia, Other Genitourinary: negative: Dysuria, Frequency, Incontinence, Hematuria, Retention , Other Musculoskeletal: Back Pain. negative: Neck Pain, Shoulder Pain, Arm Pain, Hand Pain, Leg Pain, Foot Pain, Other - Medications/Allergies Allergies/Adverse Reactions: Allergies Allergy/AdvReac Type Severity Reaction Status Date / Time hydrocodone Allergy Emesis Verified 12/09/18 19:46 Penicillins Allergy Rash Verified 12/09/18 19:46 strawberry Allergy Verified 12/09/18 19:46 Sulfa (Sulfonamide Allergy Emesis Verified 12/09/18 19:46 Antibiotics) Medications: Current Medications Acetaminophen (Tylenol) 650 mg PO Q4H PRN PRN Reason: Headache/Fever/Mild Pain (1-3) Alprazolam (Xanax) 0.25 mg PO DAILY PRN PRN Reason: Anxiety Last Admin: 12/10/18 08:59 Dose: 0.25 mg Artificial Tears (Tears Naturale) 2 drop EA EYE PRN PRN PRN Reason: Dry Eyes Aspirin (Ecotrin) 81 mg PO DAILY [facility] Last Admin: 12/11/18 08:43 Dose: 81 mg Atorvastatin Calcium (Lipitor) 10 mg PO HS [facility] Last Admin: 12/10/18 20:21 Dose: 10 mg Clopidogrel Bisulfate (Plavix) 75 mg PO DAILY [facility] Last Admin: 12/11/18 08:42 Dose: 75 mg Dextrose/Water (Dextrose 50%) 25 gm SLOW IVP PRN PRN PRN Reason: Hypoglycemia Enoxaparin Sodium (Lovenox) 40 mg SC 0900 [facility] Last Admin: 12/11/18 08:43 Dose: 40 mg Gabapentin (Neurontin) 300 mg PO TID [facility] Last Admin: 12/11/18 08:43 Dose: 300 mg Glucagon (Glucagon) 1 mg IM PRN PRN PRN Reason: Hypoglycemia Guaifenesin (Robitussin Sf) 200 mg PO Q4H PRN PRN Reason: Cough Hydralazine HCl (Apresoline) 10 mg SLOW IVP Q4H PRN PRN Reason: SBP > 180 and HR < 70 Dextrose/Water (D5w) 1,000 mls @ 0 mls/hr IV .Q0M PRN PRN Reason: Hypoglycemia Sodium Chloride (Normal Saline 0.9%) 1,000 mls @ 125 mls/hr IV .Q8H [facility] Last Admin: 12/11/18 08:44 Dose: 1,000 mls Insulin Human Regular (Humulin R) 0 units SC .MODERATE SLIDING SC PRN PRN Reason: Moderate Correctional Scale Last Admin: 12/11/18 05:28 Dose: 4 unit Loperamide HCl (Imodium) 2 mg PO PRN PRN PRN Reason: Diarrhea/Loose Stools Loratadine (Claritin) 10 mg PO DAILYPRN PRN PRN Reason: Sinus Symptoms Losartan Potassium (Cozaar) 25 mg PO 2100 [facility] Metformin HCl (Glucophage) 1,000 mg PO BID-[facility] Last Admin: 12/11/18 08:42 Dose: 1,000 mg Metoprolol Succinate (Toprol Xl) 25 mg PO DAILY [facility] Last Admin: 12/11/18 08:43 Dose: 25 mg Mineral Oil/White Petrolatum (Eucerin Cream) 0 gm TOP BIDPRN PRN PRN Reason: Dry Skin Morphine Sulfate (Morphine) 4 mg SLOW IVP Q4H PRN PRN Reason: Pain Last Admin: 12/11/18 08:55 Dose: 4 mg Nystatin (Mycostatin Powder) 0 gm TOP BID [facility] Last Admin: 12/11/18 08:44 Dose: 1 applic Ondansetron HCl (Zofran Odt) 4 mg PO Q6H PRN PRN Reason: Nausea/Vomiting Last Admin: 12/09/18 19:53 Dose: 4 mg Ondansetron HCl (Zofran) 4 mg IVP Q6H PRN PRN Reason: Nausea/Vomiting Last Admin: 12/10/18 09:00 Dose: 4 mg Pantoprazole Sodium (Protonix) 40 mg PO DAILY [facility] Last Admin: 12/11/18 08:43 Dose: 40 mg Paroxetine HCl (Paxil) 40 mg PO DAILY [facility] Last Admin: 12/11/18 08:43 Dose: 40 mg Polyethylene Glycol (Miralax) 17 gm PO BID [facility] Last Admin: 12/11/18 08:43 Dose: 17 gm Senna/Docusate Sodium (Senokot S) 2 tab PO BID PRN PRN Reason: Constipation Last Admin: 12/10/18 08:59 Dose: 2 tab Sodium Chloride ([place] Nasal [place] 0.65%) 0 ml EA NARE QIDPRN PRN PRN Reason: Nasal Congestion Sodium Chloride (Flush - Normal Saline) 10 ml IVF Q12HR [facility] Last Admin: 12/11/18 08:44 Dose: 10 ml Sodium Chloride (Flush - Normal Saline) 10 ml IVF PRN PRN PRN Reason: Saline Flush Throat Lozenges (Cepastat Lozenges) 1 lupillo PO Q2H PRN PRN Reason: Sore Throat Zolpidem Tartrate (Ambien) 5 mg PO HSPRN PRN PRN Reason: Insomnia Last Admin: 12/10/18 20:31 Dose: 5 mg
[2018-12-11] MEDS: ALPRAZolam 0.25 MG TAB PO PRN (18:20)
[2018-12-11] MEDS: Atorvastatin Calcium 10 MG TAB PO SCH (20:09)
[2018-12-11] MEDS ORDERED: Losartan 25 MG TAB PO SCH (21:00)
[2018-12-12] MEDS: Insulin Regular 300 UNITS/3 ML VIAL SC PRN ×2 (05:30→12:16)
[2018-12-12] MEDS: Nystatin Powder 15 GM BOT TOP SCH (09:02)
[2018-12-12] MEDS: Aspirin 81 mg Enteric Coated Tablet PO SCH (09:02)
[2018-12-12] MEDS: Gabapentin 300 MG CAP PO SCH (09:02)
[2018-12-12] MEDS: Clopidogrel Bisulfate 75 MG TAB PO SCH (09:02)
[2018-12-12] MEDS: metFORMIN 500 MG TAB PO SCH (09:02)
[2018-12-12] MEDS: PARoxetine 20 MG TAB PO SCH (09:02)
[2018-12-12] MEDS: Enoxaparin Sodium 40 MG/0.4 ML SYRINGE SC SCH (09:02)
[2018-12-12] MEDS: Polyethylene Glycol 3350 17 GM Packet PO SCH (09:03)
--- NOTE | 2018-12-12 09:54 | PDOC.PN ---
- Subjective Encounter Start Date: 12/12/18 Encounter Start Time: 08:00 -: old records requested/rev Patient seen and examined. No new complaints. No overnight events - Objective Resuscitation Status - Order Detail: 12/09/18 16:09 Resuscitation Status Routine Resuscitation Status: FULL: Full Resuscitation MAR Reviewed: Yes Vital Signs & Weight: Vital Signs (12 hours) Temp Pulse Resp BP Pulse Ox 12/12/18 08:00 97.7 F 81 20 120/72 97 Weight Weight 186 lb 4 oz I&O: 12/11/18 12/12/18 12/13/18 06:59 06:59 06:59 Intake Total 4358 1160 Balance 4358 1160 Result Diagrams: 12/11/18 08:36 12/11/18 08:36 Additional Labs: Accuchecks 12/12/18 12/11/18 12/11/18 05:12 20:26 16:07 POC Glucose 214 H 248 H 243 H 12/11/18 12:00 POC Glucose 245 H Phys Exam - Physical Examination Constitutional: NAD HEENT: PERRLA, moist MMs, sclera anicteric Neck: no JVD, supple Respiratory: no wheezing, no rales, no rhonchi Cardiovascular: RRR, no significant murmur, no rub Gastrointestinal: soft, non-tender, no distention, positive bowel sounds Musculoskeletal: no edema, pulses present Neurological: non-focal, normal sensation, moves all 4 limbs Lymphatic: no nodes Psychiatric: normal affect, A&O x 3 Skin: no rash, normal turgor Dx/Plan (1) Acute pancreatitis Code(s): K85.90 - ACUTE PANCREATITIS WITHOUT NECROSIS OR INFECTION, UNSP Status: Acute (2) Hypomagnesemia Code(s): E83.42 - HYPOMAGNESEMIA Status: Acute (3) CAD (coronary artery disease) Code(s): I25.10 - ATHSCL HEART DISEASE OF [place] CORONARY ARTERY W/O ANG PCTRS Status: Chronic (4) Diabetes type 2, controlled Code(s): E11.9 - TYPE 2 DIABETES MELLITUS WITHOUT COMPLICATIONS Status: Chronic (5) Dyslipidemia Code(s): E78.5 - HYPERLIPIDEMIA, UNSPECIFIED Status: Chronic (6) Hypertension Code(s): I10 - ESSENTIAL (PRIMARY) HYPERTENSION Status: Chronic (7) Obesity (BMI 30.0-34.9) Code(s): E66.9 - OBESITY, UNSPECIFIED Status: Chronic - Plan cont current plan of care * medication reviewed as below * symptomatic treatment * see discharge randy. Review of Systems - Review of Systems ENT: negative: Ear Pain, Ear Discharge, Nose Pain, Nose Discharge, Nose Congestion, Mouth Pain, Mouth Swelling, Throat Pain, Throat Swelling, Other Respiratory: negative: Cough, Dry, Shortness of Breath, Hemoptysis, SOB with Excertion, Pleuritic Pain, Sputum, Wheezing Cardiovascular: negative: chest pain, palpitations, orthopnea, paroxysmal nocturnal dyspnea, edema, light headedness, other Gastrointestinal: negative: Nausea, Vomiting, Abdominal Pain, Diarrhea, Constipation, Melena, Hematochezia, Other Genitourinary: negative: Dysuria, Frequency, Incontinence, Hematuria, Retention , Other Musculoskeletal: negative: Neck Pain, Shoulder Pain, Arm Pain, Back Pain, Hand Pain, Leg Pain, Foot Pain, Other - Medications/Allergies Allergies/Adverse Reactions: Allergies Allergy/AdvReac Type Severity Reaction Status Date / Time hydrocodone Allergy Emesis Verified 12/09/18 19:46 Penicillins Allergy Rash Verified 12/09/18 19:46 strawberry Allergy Verified 12/09/18 19:46 Sulfa (Sulfonamide Allergy Emesis Verified 12/09/18 19:46 Antibiotics) Medications: Current Medications Acetaminophen (Tylenol) 650 mg PO Q4H PRN PRN Reason: Headache/Fever/Mild Pain (1-3) Alprazolam (Xanax) 0.25 mg PO DAILY PRN PRN Reason: Anxiety Last Admin: 12/11/18 18:20 Dose: 0.25 mg Artificial Tears (Tears Naturale) 2 drop EA EYE PRN PRN PRN Reason: Dry Eyes Aspirin (Ecotrin) 81 mg PO DAILY [facility] Last Admin: 12/12/18 09:02 Dose: 81 mg Atorvastatin Calcium (Lipitor) 10 mg PO HS [facility] Last Admin: 12/11/18 20:09 Dose: 10 mg Clopidogrel Bisulfate (Plavix) 75 mg PO DAILY [facility] Last Admin: 12/12/18 09:02 Dose: 75 mg Dextrose/Water (Dextrose 50%) 25 gm SLOW IVP PRN PRN PRN Reason: Hypoglycemia Enoxaparin Sodium (Lovenox) 40 mg SC 0900 [facility] Last Admin: 12/12/18 09:02 Dose: 40 mg Gabapentin (Neurontin) 300 mg PO TID [facility] Last Admin: 12/12/18 09:02 Dose: 300 mg Glucagon (Glucagon) 1 mg IM PRN PRN PRN Reason: Hypoglycemia Guaifenesin (Robitussin Sf) 200 mg PO Q4H PRN PRN Reason: Cough Hydralazine HCl (Apresoline) 10 mg SLOW IVP Q4H PRN PRN Reason: SBP > 180 and HR < 70 Dextrose/Water (D5w) 1,000 mls @ 0 mls/hr IV .Q0M PRN PRN Reason: Hypoglycemia Insulin Human Regular (Humulin R) 0 units SC .MODERATE SLIDING SC PRN PRN Reason: Moderate Correctional Scale Last Admin: 12/12/18 05:30 Dose: 4 unit Loperamide HCl (Imodium) 2 mg PO PRN PRN PRN Reason: Diarrhea/Loose Stools Loratadine (Claritin) 10 mg PO DAILYPRN PRN PRN Reason: Sinus Symptoms Losartan Potassium (Cozaar) 25 mg PO 2100 [facility] Last Admin: 12/11/18 20:09 Dose: 25 mg Metformin HCl (Glucophage) 1,000 mg PO BID-[facility] Last Admin: 12/12/18 09:02 Dose: 1,000 mg Metoprolol Succinate (Toprol Xl) 25 mg PO DAILY [facility] Last Admin: 12/12/18 09:02 Dose: 25 mg Mineral Oil/White Petrolatum (Eucerin Cream) 0 gm TOP BIDPRN PRN PRN Reason: Dry Skin Morphine Sulfate (Morphine) 4 mg SLOW IVP Q4H PRN PRN Reason: Pain Last Admin: 12/11/18 21:18 Dose: 4 mg Nystatin (Mycostatin Powder) 0 gm TOP BID [facility] Last Admin: 12/12/18 09:02 Dose: 1 applic Ondansetron HCl (Zofran Odt) 4 mg PO Q6H PRN PRN Reason: Nausea/Vomiting Last Admin: 12/09/18 19:53 Dose: 4 mg Ondansetron HCl (Zofran) 4 mg IVP Q6H PRN PRN Reason: Nausea/Vomiting Last Admin: 12/10/18 09:00 Dose: 4 mg Pantoprazole Sodium (Protonix) 40 mg PO DAILY [facility] Last Admin: 12/12/18 09:02 Dose: 40 mg Paroxetine HCl (Paxil) 40 mg PO DAILY [facility] Last Admin: 12/12/18 09:02 Dose: 40 mg Polyethylene Glycol (Miralax) 17 gm PO BID [facility] Last Admin: 12/12/18 09:03 Dose: Not Given Senna/Docusate Sodium (Senokot S) 2 tab PO BID PRN PRN Reason: Constipation Last Admin: 12/10/18 08:59 Dose: 2 tab Sodium Chloride ([place] Nasal [place] 0.65%) 0 ml EA NARE QIDPRN PRN PRN Reason: Nasal Congestion Sodium Chloride (Flush - Normal Saline) 10 ml IVF Q12HR [facility] Last Admin: 12/12/18 09:03 Dose: Not Given Sodium Chloride (Flush - Normal Saline) 10 ml IVF PRN PRN PRN Reason: Saline Flush Throat Lozenges (Cepastat Lozenges) 1 lupillo PO Q2H PRN PRN Reason: Sore Throat Zolpidem Tartrate (Ambien) 5 mg PO HSPRN PRN PRN Reason: Insomnia Last Admin: 12/10/18 20:31 Dose: 5 mg
--- NOTE | 2018-12-12 11:04 | DIS ---
DATE OF ADMISSION: 12/09/2018 DATE OF DISCHARGE: 12/12/2018 PRIMARY CARE PHYSICIAN: [facility] Call admission. DISCHARGE DISPOSITION: Home. PRIMARY DISCHARGE DIAGNOSES: 1. Acute recurrent pancreatitis. 2. Hypomagnesemia. SECONDARY DISCHARGE DIAGNOSES: Obesity with BMI 34, hypertension, dyslipidemia, diabetes type 2, coronary artery disease. PRIMARY PROCEDURE/OPERATION: None. RADIOLOGICAL INVESTIGATION: Chest, abdomen, pelvis CT scan showed no PE consistent with pancreatitis. SIGNIFICANT LABORATORY DATA: Hemoglobin 11.5, creatinine 0.71, lipase 102. DISCHARGE MEDICATION: 1. Xanax 0.25 mg p.o. daily p.r.n. 2. Aspirin 81 mg p.o. daily. 3. Lipitor 10 mg p.o. at bedtime. 4. Plavix 75 mg daily. 5. Gabapentin 300 mg p.o. t.i.d. 6. Humulin insulin 22 units subcu at bedtime and 42 units in the morning. 7. Humulin R as per sliding scale. 8. Losartan 25 mg daily. 9. Metformin 1000 mg b.i.d. 10. Toprol-XL 25 mg daily. 11. Protonix 40 mg p.o. daily. 12. Paxil 40 mg p.o. daily. CONTRAINDICATION: None. CODE STATUS: Full code. INPATIENT BARBER APPRENTICE: None. ALLERGIES: HYDROCODONE, PENICILLIN, SULFA. DISCHARGE PLAN: Posthospital, the patient will follow up with primary care physician. HOSPITAL COURSE: A 73-year-old female, who has recurrent pancreatitis in the past and this time she was admitted by Dr. Torres with abdominal pain, which was radiating to back. This time also, the patient had fell down and she was having back spasm that is why she was experiencing more pain. She was admitted to our hospital at other emergency room. The patient had CT angiography, which was negative for PE and CT abdomen and pelvis, which was consistent with pancreatitis. While in hospital, we treated her in standard fashion with n.p.o., IV fluid and pain controlled with pain medication. We did physical therapy and the patient was doing much better. Subsequently, we advanced her diet. The patient was completely asymptomatic by the time of discharge, and she expressed her wish to go home. The patient is given necessary education about diet. She will continue all her previous home medication. The patient is seen and examined at bedside today. Please see my progress note from today for further detail. Job ID: [id number]
[2018-12-12 12:23] VITALS: BP 123/71; TEMP 98
== END 2018-12-12 13:41 | disposition home or self-care (01) | DRG 439 ==
LOC: ERS 14:02 → T4-A 15:40
PROVIDERS: ADMIT Internal Medicine; ATTEND Internal Medicine
DX: K85.90 Acute pancreatitis without necrosis or infection, unspecified (principal); N17.9 Acute kidney failure, unspecified; E11.9 Type 2 diabetes mellitus without complications; I10 Essential (primary) hypertension; I25.10 Atherosclerotic heart disease of native coronary artery without angina pectoris; E78.5 Hyperlipidemia, unspecified; F41.9 Anxiety disorder, unspecified; F32.9 Major depressive disorder, single episode, unspecified; E83.42 Hypomagnesemia; E66.9 Obesity, unspecified; Z68.34 Body mass index [BMI] 34.0-34.9, adult; Z79.02 Long term (current) use of antithrombotics/antiplatelets; Z79.82 Long term (current) use of aspirin; Z79.4 Long term (current) use of insulin; Z88.0 Allergy status to penicillin; Z88.2 Allergy status to sulfonamides; Z86.73 Personal history of transient ischemic attack (TIA), and cerebral infarction without residual deficits; Z90.49 Acquired absence of other specified parts of digestive tract; Z95.5 Presence of coronary angioplasty implant and graft; Z83.3 Family history of diabetes mellitus; Z82.3 Family history of stroke
CPT/HCPCS: 36415; 36416; 80048; 83690; 83735; 84100; 85025; 86140; 96374; J1650; J1815; J2270; J2405; J3475; Q0162

== ENCOUNTER 2019-04-10 05:46 | Inpatient (IN) | payer MEDICARE ==
[2019-04-10] MEDS ORDERED: Ondansetron PF 4 MG/2 ML Vial ONE (06:07)
[2019-04-10] MEDS ORDERED: Morphine 4 MG/ML VIAL ONE ×2 (06:07→07:42)
[2019-04-10 06:27] LABS: #Basophils 0.1 thou/uL (0.0-0.2); #Eosinphils 0.2 thou/uL (0.0-0.7); #Lymphocytes 1.5 thou/uL (1.20-3.40); #Monocytes 0.9 thou/uL (0.11-0.59); #Neutrophils 10.7 thou/uL (1.40-6.50); %Basophils 0.4 % (0.0-1.0); %Eosinophils 1.5 % (0.0-10.0); %Lymphocytes 11.2 % (21.0-51.0); %Monocytes 6.8 % (0.0-10.0); %Neutrophils 80.2 % (42.0-75.0); Hemoglobin 12.9 g/dL (12.0-16.0); Mean Corpuscular HGB CONC 32.4 g/dL (32.0-36.0); Mean Corpuscular Hemoglobin 28.8 pg (27.0-31.0); Mean Corpuscular Volume 88.9 fL (78.0-98.0); Platelet Count 301 thou/uL (130-400); RBC Distribution Width 13.1 % (11.5-14.5); White Blood Cell (WBC) Count 13.3 thou/uL (4.8-10.8)
[2019-04-10 06:56] LABS: ALT (SGPT) 40 U/L (8-55); AST (SGOT) 72 U/L (5-34); Albumin 3.9 g/dL (3.4-4.8); Alkaline Phosphatase 80 U/L (40-150); Anion Gap 11 mmol/L (10-20); BUN (Urea Nitrogen) 12 mg/dL (9.8-20.1); Bilirubin, Total 0.4 mg/dL (0.2-1.2); Calc. Creatinine Clearance 0 mL/min (70-130); Calcium 10.9 mg/dL (7.8-10.44); Carbon Dioxide 27 mmol/L (23-31); Chloride 104 mmol/L (98-107); Estimated GFR-MDRD 66; Globulin 2.6 g/dL (2.4-3.5); Glucose 232 mg/dL (83-110); Potassium 4.5 mmol/L (3.5-5.1); Protein, Total 6.5 g/dL (6.0-8.3); Sodium 137 mmol/L (136-145)
[2019-04-10 07:11] LABS: Lipase 1243 U/L (8-78)
[2019-04-10 07:52] LABS: Bilirubin Negative (Negative); Blood, Urine Negative (Negative); Clarity Clear (Clear); Glucose, Urine (Dipstick) 150 mg/dL (Negative); Leukocyte Negative Leu/uL (Negative); Nitrite Negative (Negative); Protein, Urine (Dipstick) 20 mg/dL (Neg-Trace); Urobilinogen Normal mg/dL (Less than 2)
--- NOTE | 2019-04-10 07:57 | CT ---
CT ABDOMEN AND PELVIS WITH IV CONTRAST 04/10/2019 CLINICAL INFORMATION: Abdominal pain. Patient states pain is unbearable. COMPARISON: 12/09/2018 Technique: Multiple contiguous axial CT images are obtained through the abdomen and pelvis with IV contrast. Cor onal reformatted images are provided. FINDINGS: Lower Chest: Linear bibasilar densities are seen likely related to atelectasis. Vessels: Vascular calcifications are again seen in the abdominal aorta and involving the iliac arteri es. Abdomen: Portal vein:Patent Gallbladder: Surgically absent. Liver: Calcified granuloma is seen. Liver otherwise has a normal appearance. Spleen: Calcified granulomata are seen. Pancreas: There are calcifications in the region of the pancreatic head likely sequela of prior pancr eatitis. There is minimal peripancreatic inflammatory stranding adjacent to the body of the pancreas which may be sequela of pancreatitis. No pancreatic or peripancreatic fluid collection is ap preciated. Pancreatic duct is mildly prominent. Adrenals: There is slight nodularity of the left adrenal gland, but this is less prominent than on e prior exam. Discrete measurable nodule is not present. Kidneys: Large exophytic left renal cysts are again seen. There is a heterogeneous lesion again seen at the posterior aspect midportion of the left kidney which cannot be characterized as a simple cyst. There is suggestion of slight heterogeneous enhancement; although, this appearance was more pro minent on the prior exam. Subcentimeter too small to characterize hypodense lesions are seen in the left kidney. There is a single subcentimeter too small to characterize exophytic hypodense lesion pos terior aspect midportion right kidney. Bowel: Normal caliber. Appendix: The appendix is visualized and normal in caliber. Peritoneum: No ascites or free air; no fluid collection. Mesentery and Retroperitoneum: No enlarged mesenteric or retroperitoneal lymph nodes. Abdominal Wall: Again noted is a fat-containing ventral abdominal wall hernia. In addition, just infe rior to this fat-containing umbilical hernia there is an additional ventral abdominal wall hernia which does contain a portion of the sigmoid colon. These 2 ventral abdominal hernias are closely dean cent to one another. Findings were also present on prior exam. Pelvis: Reproductive Organs: No pelvic masses. Pelvis within normal limits. Bladder: Partially distended and normal in appearance. Bones: Degenerative changes are again seen in the spine. There is evidence of bilateral hip osteoarth ritis. IMPRESSION: 1. Minimal peripancreatic inflammatory stranding suggestive of pancreatitis. Correlation with pancrea tic enzymes is recommended. There is stable mild prominence and dilatation of the pancreatic duct. 2. Hypodense lesion with slight heterogeneity seen in the posterior aspect midportion left kidney whi ch is stable in size compared to prior exam, but this lesion demonstrated greater degree of heterogeneous enhancement on prior exam. This cannot be characterized as a simple cyst, and neoplasti c process is diagnosis of exclusion. 3. Ventral abdominal wall hernias one of which contains fat, and second closely adjacent abdominal wa ll hernia contains a loop of the transverse colon without obstruction.
[2019-04-10] MEDS ORDERED: Dextrose 50% Abboject 50 ML SYRINGE SLOW IVP PRN (11:59)
[2019-04-10] MEDS ORDERED: HumaLOG 300 UNITS/3 ML VIAL SC PRN (11:59)
[2019-04-10] MEDS ORDERED: Dextrose 5% in Water 1,000 ML IV PRN (11:59)
[2019-04-10 15:29] VITALS: BMI 31.6
[2019-04-10] MEDS ORDERED: Iopamidol 370 76% 100 ML VIAL ONE (16:23)
[2019-04-10] MEDS: Sodium Chloride 0.9% 1,000 ML IV SCH (16:39)
[2019-04-10] MEDS: Famotidine/PF 20 mg/2ml Vial SLOW IVP SCH (20:06)
[2019-04-10] MEDS: Morphine 2 MG/ML SYRINGE SLOW IVP PRN (22:14)
[2019-04-11] MEDS: Sodium Chloride 0.9% 1,000 ML IV SCH (05:35)
[2019-04-11 05:57] LABS: #Basophils 0.1 thou/uL (0.0-0.2); #Eosinphils 0.3 thou/uL (0.0-0.7); #Lymphocytes 2.2 thou/uL (1.20-3.40); #Monocytes 0.7 thou/uL (0.11-0.59); #Neutrophils 4.4 thou/uL (1.40-6.50); %Basophils 1.1 % (0.0-1.0); %Eosinophils 4.1 % (0.0-10.0); %Lymphocytes 28.4 % (21.0-51.0); %Monocytes 9.3 % (0.0-10.0); %Neutrophils 57.1 % (42.0-75.0); Mean Corpuscular HGB CONC 31.6 g/dL (32.0-36.0); Mean Corpuscular Hemoglobin 28.1 pg (27.0-31.0); Mean Corpuscular Volume 88.9 fL (78.0-98.0); Mean Platelet Volume 9.1 fL (7.4-10.4); Platelet Count 261 thou/uL (130-400); RBC Distribution Width 13.1 % (11.5-14.5); Red Blood Cell (RBC) Count 4.29 mill/uL (4.20-5.40); White Blood Cell (WBC) Count 7.8 thou/uL (4.8-10.8)
[2019-04-11] MEDS ORDERED: HumaLOG 300 UNITS/3 ML VIAL SC PRN (06:13)
[2019-04-11 06:21] LABS: ALT (SGPT) 42 U/L (8-55); AST (SGOT) 28 U/L (5-34); Albumin 3.5 g/dL (3.4-4.8); Alkaline Phosphatase 73 U/L (40-150); Anion Gap 11 mmol/L (10-20); BUN (Urea Nitrogen) 8 mg/dL (9.8-20.1); Bilirubin, Total 0.5 mg/dL (0.2-1.2); Calc. Creatinine Clearance 81 mL/min (70-130); Calcium 9.8 mg/dL (7.8-10.44); Carbon Dioxide 23 mmol/L (23-31); Chloride 106 mmol/L (98-107); Estimated GFR-MDRD 72; Globulin 2.3 g/dL (2.4-3.5); Glucose 228 mg/dL (83-110); Lipase 146 U/L (8-78); Potassium 4.6 mmol/L (3.5-5.1); Protein, Total 5.8 g/dL (6.0-8.3); Sodium 135 mmol/L (136-145)
[2019-04-11] MEDS: Famotidine/PF 20 mg/2ml Vial SLOW IVP SCH (09:18)
[2019-04-11] MEDS: Acetaminophen 325 MG TAB PO PRN ×2 (09:18→22:03)
[2019-04-11] MEDS: Aspirin 81 mg Enteric Coated Tablet PO SCH (09:18)
[2019-04-11] MEDS: Enoxaparin Sodium 40 MG/0.4 ML SYRINGE SC SCH (09:19)
[2019-04-11] MEDS ORDERED: Gabapentin 300 MG CAP PO PRN (10:03)
[2019-04-11] MEDS ORDERED: metFORMIN 500 MG TAB PO SCH (10:15)
--- NOTE | 2019-04-11 10:58 | HP ---
CHIEF COMPLAINT: Abdominal pain. HISTORY OF PRESENT ILLNESS: This patient is a 73-year-old female with a history of pancreatitis who previously had an episode and had a cholecystectomy, but has subsequently had recurrent episodes. She actually lives in [place], but stays with a friend locally much of the time. She has been referred to a electrical electronics engineer in the [place] area and apparently there was a plan for her to go on April 23 to have a stone removed from her pancreatic duct. Unfortunately, the patient started developing pain again last evening and that pain progressed to the point where she had to return to the hospital. She reports pain in his epigastric and/or left upper quadrant area, was as high as a 9/10. She had some nausea. No vomiting. She has had some pain medications and antiemetics in the emergency department, which have improved her pain, she is currently at 3/10. She reports, overall this will be her 6th episode. REVIEW OF SYSTEMS: All other systems reviewed. All pertinent positives and negatives noted in History of Present Illness. PAST MEDICAL HISTORY: Notable for the above-mentioned recurrent episodes of pancreatitis with peripancreatic duct cyst. He has a history of RI, history of diabetes mellitus, gastroesophageal reflux, hypertension, obesity, CVA in 2005, osteoarthritis. PAST SURGICAL HISTORY: Coronary stent, cataract surgery, , and cholecystectomy. FAMILY HISTORY: Father at 59 from lung cancer. Mother at 92 from failure to thrive. SOCIAL HISTORY: The patient is a nonsmoker. She occasionally has a glass of wine, nondrug user. She has been for 5 years. She is full code and her son would be her surrogate decision maker should that be necessary. PHYSICAL EXAMINATION: VITAL SIGNS: Temperature 97.7, pulse 68, respirations 17, O2 saturation 94% on room air, and BP 99/77. GENERAL APPEARANCE: Age-appropriate female, in no distress. Awake, alert, although she is a bit sleepy from the pain medications. HEENT: PERRL. No OP lesions. NECK: Supple and symmetric. No lymphadenopathy, JVD, or carotid bruits. HEART: Regular rate and rhythm. No murmurs, gallops, or rubs. LUNGS: Clear to auscultation bilaterally with good chest wall expansion and air exchange. ABDOMEN: Soft, nondistended. Positive bowel sounds. There is tenderness to palpation in the epigastrium and left upper quadrant area with some minimal voluntary guarding. Benign masses are present. EXTREMITIES: No cyanosis, clubbing, or edema. LABORATORY DATA: White count 13.3, hemoglobin 12.9, platelets 301. Sodium 137, potassium 4.5, chloride 104, BUN 12, creatinine 0.8, glucose 232, calcium 10.9, AST 72, ALT 40, lipase is 1243, alkaline phosphatase 80, albumin 3.9. Urinalysis negative. CT abdomen and pelvis shows minimal peripancreatic inflammation stranding suggestive of pancreatitis. Mild prominence and dilatation of the pancreatic duct. Hypodense lesion with slight heterogeneity seen in the posterior aspect. Mid portion left kidney which is stable in size, but appears to be less heterogeneous than previous comparison from November could not be characterized as a simple cyst. There is a ventral abdominal wall hernia. IMPRESSION AND PLAN: 1. Acute recurrent pancreatitis. The patient apparently has a pancreatic duct stone and was to follow up in [place] in order to have the stone removed on April 23; however, she is having a recurrent episode of pain and inflammation. We will treat her with standard therapy with IV fluids, bowel rest, and pain medications. If she responds fairly quickly, we will not likely involve our GI guys here. If she does not, may need to do that. 2. Renal lesion. This could be assessed as an outpatient with Urology. As of right now, we will wait to see how the patient responds with her pancreatitis. However, she may want to follow up in [place] to have this further evaluated. 3. Diabetes mellitus. We will hold off on any long-acting insulin since she will be n.p.o., keep her on sliding scale. 4. Hypertension. We will resume her usual medications with sips of water. 5. History of coronary artery disease. We will continue with aspirin and beta-evette. Job ID: [id number]
[2019-04-11] MEDS: Morphine 2 MG/ML SYRINGE SLOW IVP PRN (11:06)
[2019-04-11] MEDS: HumaLOG 300 UNITS/3 ML VIAL SC PRN ×2 (11:17→20:04)
[2019-04-11] MEDS ORDERED: Amoxicillin/Potassium Clav 250 MG TAB PO SCH (18:30)
--- NOTE | 2019-04-11 18:36 | PDOC.HOSPP ---
- Subjective Encounter Date: 04/11/19 Encounter Time: 18:34 Subjective: Feels much better today. Pain has almost resolved. Had anxiety and near panic attack which she says is not uncommon for her. Would her xanax. Would also like to have some coffee. Does not really recall our conversation from yesterday when she was in the ED. - Objective Vital Signs & Weight: Vital Signs (12 hours) Temp Pulse Resp BP BP Pulse Ox 04/11/19 14:00 132/77 04/11/19 12:31 97.9 F 80 20 177/92 H 95 04/11/19 08:00 97.4 F L 80 18 125/78 94 L Weight Weight 178 lb 9.191 oz I&O: 04/10/19 04/11/19 04/12/19 06:59 06:59 06:59 Intake Total 950 2400 Balance 950 2400 Result Diagrams: 04/11/19 05:46 04/11/19 05:46 Additional Labs: Accuchecks 04/11/19 04/11/19 04/11/19 17:04 11:17 04:14 POC Glucose 144 H 190 H 245 H 04/10/19 20:17 POC Glucose 198 H ROS - Medication Medications: Active Medications Generic Name Dose Route Start Last Admin Trade Name Freq PRN Reason Stop Dose Admin Acetaminophen 650 mg 04/11/19 08:56 04/11/19 09:18 Tylenol PO 650 mg Q4H PRN Administration Mild Pain (1-3) Aspirin 81 mg 04/11/19 09:00 04/11/19 09:18 Ecotrin PO 81 mg DAILY RUSSELL Administration Enoxaparin Sodium 40 mg 04/11/19 09:00 04/11/19 09:19 Lovenox SC 40 mg 0900 RUSSELL Administration Insulin Human Lispro 0 units 04/11/19 10:07 04/11/19 11:17 Humalog SC 2 unit .MODERATE SLIDING SC PRN Administration Moderate Correctional Scale Morphine Sulfate 2 mg 04/10/19 11:59 04/11/19 11:06 Morphine SLOW IVP 2 mg Q4H PRN Administration Moderate to Severe Pain (6-10) - Exam NAD Heart: RRR, no murmur, no gallops, no rubs, normal peripheral pulses Respiratory: CTAB, no wheezes, no rales, no ronchi, normal chest expansion, no tachypnea, normal percussion Gastrointestinal: soft, non-tender, non-distended, normal bowel sounds, no palpable masses, no hepatomegaly, no splenomegaly, no bruit Neurological: CN's grossly intact, normal sensation to touch, no weakness, no focal deficits, no new deficit Psychiatric: normal affect, normal behavior, A&O x 3 Hosp A/P (1) Acute pancreatitis Code(s): K85.90 - ACUTE PANCREATITIS WITHOUT NECROSIS OR INFECTION, UNSP Status: Acute (2) CAD (coronary artery disease) Code(s): I25.10 - ATHSCL HEART DISEASE OF [place] CORONARY ARTERY W/O ANG PCTRS Status: Chronic (3) Diabetes type 2, controlled Code(s): E11.9 - TYPE 2 DIABETES MELLITUS WITHOUT COMPLICATIONS Status: Chronic (4) Dyslipidemia Code(s): E78.5 - HYPERLIPIDEMIA, UNSPECIFIED Status: Chronic (5) Hypertension Code(s): I10 - ESSENTIAL (PRIMARY) HYPERTENSION Status: Chronic (6) Obesity (BMI 30.0-34.9) Code(s): E66.9 - OBESITY, UNSPECIFIED Status: Chronic (7) Anxiety Code(s): F41.9 - ANXIETY DISORDER, UNSPECIFIED Status: Acute - Plan Symptoms much better. Labs much better. Resume po home meds. Clears and advance as tolerated.
[2019-04-11] MEDS: Atorvastatin Calcium 20 MG TAB PO SCH (20:02)
[2019-04-11] MEDS: Losartan 25 MG TAB PO SCH (20:03)
[2019-04-11] MEDS: ALPRAZolam 0.25 MG TAB PO PRN (20:04)
[2019-04-11] MEDS: Melatonin 3 MG TAB PO PRN (22:03)
[2019-04-12] MEDS: HumaLOG 300 UNITS/3 ML VIAL SC PRN ×3 (05:12→16:15)
[2019-04-12] MEDS ORDERED: Aspirin 81 mg Enteric Coated Tablet PO SCH (09:00)
[2019-04-12] MEDS: PARoxetine 20 MG TAB PO SCH (09:03)
[2019-04-12] MEDS: Aspirin 81 mg Enteric Coated Tablet PO SCH (09:03)
[2019-04-12] MEDS: metFORMIN 500 MG TAB PO SCH ×2 (09:03→16:08)
[2019-04-12] MEDS: Enoxaparin Sodium 40 MG/0.4 ML SYRINGE SC SCH (09:03)
[2019-04-12] MEDS: Morphine 2 MG/ML SYRINGE SLOW IVP PRN ×2 (10:59→15:02)
[2019-04-12] MEDS: ALPRAZolam 0.25 MG TAB PO PRN ×2 (11:42→21:58)
[2019-04-12] MEDS: Acetaminophen 325 MG TAB PO PRN ×3 (12:23→21:58)
[2019-04-12] MEDS ORDERED: Morphine 2 MG/ML SYRINGE SLOW IVP PRN (16:57)
[2019-04-12] MEDS: Losartan 25 MG TAB PO SCH (19:49)
[2019-04-12] MEDS: Morphine 4 MG/ML VIAL SLOW IVP PRN (19:49)
[2019-04-12] MEDS: Atorvastatin Calcium 20 MG TAB PO SCH (19:49)
--- NOTE | 2019-04-12 21:59 | PDOC.HOSPP ---
- Subjective Subjective: Patient seen twice today. Early this morning, she was feeling very well. Tolerated the clears without any problems. Diet was advanced and she has subsequently had acute worsening of her pain back to the level it was when she presented. - Objective Vital Signs & Weight: Vital Signs (12 hours) Temp Pulse Resp BP BP Pulse Ox 04/12/19 18:37 97.9 F 81 20 142/76 H 96 04/12/19 17:15 98.6 F 65 16 134/86 98 04/12/19 11:00 98.0 F 93 20 170/89 H 97 Weight Weight 178 lb 9.191 oz I&O: 04/11/19 04/12/19 04/13/19 06:59 06:59 06:59 Intake Total 950 3260 1560 Balance 950 3260 1560 Result Diagrams: 04/11/19 05:46 04/11/19 05:46 Additional Labs: Accuchecks 04/12/19 04/12/19 04/12/19 16:12 11:58 04:10 POC Glucose 233 H 298 H 223 H ROS - Medication Medications: Active Medications Generic Name Dose Route Start Last Admin Trade Name Freq PRN Reason Stop Dose Admin Acetaminophen 650 mg 04/11/19 08:56 04/12/19 17:43 Tylenol PO 650 mg Q4H PRN Administration Mild Pain (1-3) Alprazolam 0.25 mg 04/11/19 10:03 04/12/19 11:42 Xanax PO 0.25 mg DAILYPRN PRN Administration Anxiety Aspirin 81 mg 04/11/19 09:00 04/12/19 09:03 Ecotrin PO 81 mg DAILY RUSSELL Administration Atorvastatin Calcium 10 mg 04/11/19 21:00 04/12/19 19:49 Lipitor PO 10 mg HS RUSSELL Administration Enoxaparin Sodium 40 mg 04/11/19 09:00 04/12/19 09:03 Lovenox SC 40 mg 0900 RUSSELL Administration Insulin Human Lispro 0 units 04/11/19 10:07 04/12/19 16:15 Humalog SC 4 unit .MODERATE SLIDING SC PRN Administration Moderate Correctional Scale Insulin Human Lispro 0 units 04/11/19 10:07 04/11/19 20:04 Humalog SC 3 unit .BEDTIME SLIDING SC PRN Administration Bedtime Correctional Scale Losartan Potassium 25 mg 04/11/19 21:00 04/12/19 19:49 Cozaar PO 25 mg HS RUSSELL Administration Melatonin 3 mg 04/11/19 10:08 04/11/19 22:03 Melatonin PO 3 mg HS PRN Administration Insomnia Metformin HCl 1,000 mg 04/12/19 08:00 04/12/19 16:08 Glucophage PO 1,000 mg BID-WM RUSSELL Administration Morphine Sulfate 4 mg 04/12/19 16:56 04/12/19 19:49 Morphine SLOW IVP 4 mg Q4H PRN Administration Severe Pain (7-10) Pantoprazole Sodium 40 mg 04/12/19 09:00 04/12/19 09:03 Protonix PO 40 mg DAILY RUSSELL Administration Paroxetine HCl 40 mg 04/12/19 09:00 04/12/19 09:03 Paxil PO 40 mg DAILY RUSSELL Administration - Exam NAD, awake alert Heart: RRR, no murmur, no gallops, no rubs, normal peripheral pulses Respiratory: CTAB, no wheezes, no rales, no ronchi, normal chest expansion, no tachypnea, normal percussion Gastrointestinal: soft, non-tender, non-distended Gastrointestinal - other findings: Modest epigastric TTP. Neurological: CN's grossly intact, normal sensation to touch, no weakness, no focal deficits, no new deficit Musculoskeletal: normal tone Psychiatric: normal affect Hosp A/P (1) Acute pancreatitis Code(s): K85.90 - ACUTE PANCREATITIS WITHOUT NECROSIS OR INFECTION, UNSP Status: Acute (2) CAD (coronary artery disease) Code(s): I25.10 - ATHSCL HEART DISEASE OF [place] CORONARY ARTERY W/O ANG PCTRS Status: Chronic (3) Diabetes type 2, controlled Code(s): E11.9 - TYPE 2 DIABETES MELLITUS WITHOUT COMPLICATIONS Status: Chronic (4) Dyslipidemia Code(s): E78.5 - HYPERLIPIDEMIA, UNSPECIFIED Status: Chronic (5) Hypertension Code(s): I10 - ESSENTIAL (PRIMARY) HYPERTENSION Status: Chronic (6) Obesity (BMI 30.0-34.9) Code(s): E66.9 - OBESITY, UNSPECIFIED Status: Chronic (7) Anxiety Code(s): F41.9 - ANXIETY DISORDER, UNSPECIFIED Status: Acute - Plan Symptoms much better, then worse when diet advanced. Labs much better. Resume po home meds. Clear liquids again. Increase PRN pain meds. If her symptoms continue to recur, will need to consider getting her back to her GI in [place] for the ERCP and stone removal from the pancreatic duct. She would like to consider going home if she can tolerate the clears. She has animals at home that need her attention.
[2019-04-12] MEDS ORDERED: Ondansetron PF 4 MG/2 ML Vial IVP PRN (22:53)
[2019-04-12] MEDS ORDERED: traMADol HCl 50 MG TAB PO SCH (23:00)
[2019-04-13] MEDS: Morphine 4 MG/ML VIAL SLOW IVP PRN ×2 (00:22→12:42)
[2019-04-13] MEDS: HumaLOG 300 UNITS/3 ML VIAL SC PRN ×3 (04:18→17:36)
[2019-04-13] MEDS: PARoxetine 20 MG TAB PO SCH (08:13)
[2019-04-13] MEDS: metFORMIN 500 MG TAB PO SCH ×2 (08:13→17:36)
[2019-04-13] MEDS: Aspirin 81 mg Enteric Coated Tablet PO SCH (08:14)
[2019-04-13] MEDS: Enoxaparin Sodium 40 MG/0.4 ML SYRINGE SC SCH (08:14)
--- NOTE | 2019-04-13 12:28 | PDOC.HOSPP ---
- Subjective Encounter Date: 04/13/19 Encounter Time: 12:26 Subjective: Has had waxing and waning pain. Was better this morning, but now has pain recurring in the epigastric area radiating around the right side to the back. Was more on the left previously. - Objective Vital Signs & Weight: Vital Signs (12 hours) Temp Pulse Resp BP Pulse Ox 04/13/19 11:35 97.8 F 90 20 138/83 95 04/13/19 08:00 96 04/13/19 07:55 97.5 F L 96 20 109/73 96 Weight Weight 178 lb 9.191 oz I&O: 04/12/19 04/13/19 04/14/19 06:59 06:59 06:59 Intake Total 3260 1560 Balance 3260 1560 Result Diagrams: 04/11/19 05:46 04/11/19 05:46 Additional Labs: Accuchecks 04/13/19 04/13/19 04/12/19 11:38 04:05 16:12 POC Glucose 278 H 341 H 233 H ROS - Medication Medications: Active Medications Generic Name Dose Route Start Last Admin Trade Name Freq PRN Reason Stop Dose Admin Acetaminophen 650 mg 04/11/19 08:56 04/12/19 21:58 Tylenol PO 650 mg Q4H PRN Administration Mild Pain (1-3) Alprazolam 0.25 mg 04/11/19 10:03 04/12/19 21:58 Xanax PO 0.25 mg DAILYPRN PRN Administration Anxiety Aspirin 81 mg 04/11/19 09:00 04/13/19 08:14 Ecotrin PO 81 mg DAILY RUSSELL Administration Atorvastatin Calcium 10 mg 04/11/19 21:00 04/12/19 19:49 Lipitor PO 10 mg HS RUSSELL Administration Enoxaparin Sodium 40 mg 04/11/19 09:00 04/13/19 08:14 Lovenox SC 40 mg 0900 RUSSELL Administration Insulin Human Lispro 0 units 04/11/19 10:07 04/13/19 11:53 Humalog SC 6 unit .MODERATE SLIDING SC PRN Administration Moderate Correctional Scale Insulin Human Lispro 0 units 04/11/19 10:07 04/11/19 20:04 Humalog SC 3 unit .BEDTIME SLIDING SC PRN Administration Bedtime Correctional Scale Losartan Potassium 25 mg 04/11/19 21:00 04/12/19 19:49 Cozaar PO 25 mg HS RUSSELL Administration Melatonin 3 mg 04/11/19 10:08 04/11/19 22:03 Melatonin PO 3 mg HS PRN Administration Insomnia Metformin HCl 1,000 mg 04/12/19 08:00 04/13/19 08:13 Glucophage PO 1,000 mg BID-WM RUSSELL Administration Morphine Sulfate 4 mg 04/12/19 16:56 04/13/19 00:22 Morphine SLOW IVP 4 mg Q4H PRN Administration Severe Pain (7-10) Ondansetron HCl 4 mg 04/12/19 22:53 04/12/19 23:02 Zofran IVP 4 mg Q6H PRN Administration Nausea/Vomiting Pantoprazole Sodium 40 mg 04/12/19 09:00 04/13/19 08:13 Protonix PO 40 mg DAILY RUSSELL Administration Paroxetine HCl 40 mg 04/12/19 09:00 04/13/19 08:13 Paxil PO 40 mg DAILY RUSSELL Administration - Exam NAD, awake alert General - other findings: Looks uncomfortable. Neck: supple, symmetric, no JVD, no thyromegaly, no lymphadenopathy, no carotid bruit Heart: RRR, no murmur, no gallops, no rubs, normal peripheral pulses Respiratory: CTAB, no wheezes, no rales, no ronchi, normal chest expansion, no tachypnea, normal percussion Gastrointestinal: soft, non-distended Gastrointestinal - other findings: Mild TTP R epigastric area Extremities: no cyanosis, no clubbing, no edema Skin: normal turgor Neurological: CN's grossly intact Musculoskeletal: normal tone Psychiatric: normal affect, normal behavior, A&O x 3 Hosp A/P (1) Acute pancreatitis Code(s): K85.90 - ACUTE PANCREATITIS WITHOUT NECROSIS OR INFECTION, UNSP Status: Acute (2) CAD (coronary artery disease) Code(s): I25.10 - ATHSCL HEART DISEASE OF [place] CORONARY ARTERY W/O ANG PCTRS Status: Chronic (3) Diabetes type 2, controlled Code(s): E11.9 - TYPE 2 DIABETES MELLITUS WITHOUT COMPLICATIONS Status: Chronic (4) Dyslipidemia Code(s): E78.5 - HYPERLIPIDEMIA, UNSPECIFIED Status: Chronic (5) Hypertension Code(s): I10 - ESSENTIAL (PRIMARY) HYPERTENSION Status: Chronic (6) Obesity (BMI 30.0-34.9) Code(s): E66.9 - OBESITY, UNSPECIFIED Status: Chronic (7) Anxiety Code(s): F41.9 - ANXIETY DISORDER, UNSPECIFIED Status: Acute - Plan Pain recurred. Dropped back to clears and pain has persisted. Will go back to NPO, IVF. Recheck labs. Consult GI. Query whether we need to get her transferred to a facility where the pancreatic duct stone can be addressed definitively. She was supposed to have this done in [place] on the . Continue pain meds.
[2019-04-13] MEDS: ALPRAZolam 0.25 MG TAB PO PRN (12:55)
[2019-04-13 14:41] LABS: #Eosinphils 0.2 thou/uL (0.0-0.7); #Lymphocytes 1.6 thou/uL (1.20-3.40); #Monocytes 0.8 thou/uL (0.11-0.59); %Basophils 0.5 % (0.0-1.0); %Eosinophils 1.5 % (0.0-10.0); %Lymphocytes 15.3 % (21.0-51.0); %Monocytes 7.9 % (0.0-10.0); %Neutrophils 74.9 % (42.0-75.0); Hemoglobin 12.8 g/dL (12.0-16.0); Mean Corpuscular HGB CONC 32.9 g/dL (32.0-36.0); Mean Corpuscular Hemoglobin 28.7 pg (27.0-31.0); Mean Platelet Volume 9.4 fL (7.4-10.4); Platelet Count 292 thou/uL (130-400); RBC Distribution Width 12.8 % (11.5-14.5); Red Blood Cell (RBC) Count 4.46 mill/uL (4.20-5.40); White Blood Cell (WBC) Count 10.6 thou/uL (4.8-10.8)
[2019-04-13 15:00] LABS: ALT (SGPT) 306 U/L (8-55); AST (SGOT) 272 U/L (5-34); Albumin 3.9 g/dL (3.4-4.8); Alkaline Phosphatase 145 U/L (40-150); Anion Gap 11 mmol/L (10-20); BUN (Urea Nitrogen) 9 mg/dL (9.8-20.1); Bilirubin, Total 0.5 mg/dL (0.2-1.2); Calc. Creatinine Clearance 75 mL/min (70-130); Calcium 10.6 mg/dL (7.8-10.44); Carbon Dioxide 25 mmol/L (23-31); Chloride 101 mmol/L (98-107); Estimated GFR-MDRD 66; Globulin 2.5 g/dL (2.4-3.5); Glucose 245 mg/dL (83-110); Lipase 335 U/L (8-78); Potassium 3.8 mmol/L (3.5-5.1); Protein, Total 6.4 g/dL (6.0-8.3); Sodium 133 mmol/L (136-145)
[2019-04-13] MEDS ORDERED: Diazepam 10 MG/2 ML SYRINGE IVP SCH (15:30)
[2019-04-13] MEDS: Sodium Chloride 0.9% 1,000 ML IV SCH (16:08)
--- NOTE | 2019-04-13 17:32 | MRI ---
EXAM: MRI Abdomen WO Con DATE: 04/13/2019 3:23 PM INDICATION: Concern for stone in the pancreatic duct COMPARISON: CT the abdomen and pelvis dated April 12, 2019 FINDING: There is a 9.9 mm T2 hypointense focus seen within the confluence of the main pancreatic du ct and distal common bile duct, near the ampulla, on image 16 of series 4 and image 36 of series 5 which may reflect a distal stone partially obstructing the main pancreatic duct and common bile duct. The main pancreatic duct is dilated measuring up to 5.8 mm at the region of the pancreatic head. The common bile duct is dilated measuring 8.9 mm. There is mild peripancreatic edema. The gallbladder is surgically absent. There are bilateral renal cysts. The largest measures 6.5 cm involving left mid kidney. The questionable heterogeneous lesion involving the lower pole of the left kidney cannot be further characterize MR examination. No focal hepatic lesion is evident. Degenerative glands and spleen appear within norm al limits. No enlarged lymph nodes are present. No suspicious marrow signal abnormality is evident. There is mild thoracolumbar scoliosis. IMPRESSION:9.9 mm suspected stone involving the confluence of the main pancreatic duct and common dali e duct with associated obstructive changes of the common bile duct and main pancreatic duct. ERCP is recommended. Mild pancreatitis Questionable lesion involving the lower pole left kidney on the comparison CT examination is not well characterized on the current noncontrast MR examination.
[2019-04-13] MEDS: Losartan 25 MG TAB PO SCH (20:20)
[2019-04-13] MEDS: Atorvastatin Calcium 20 MG TAB PO SCH (20:20)
[2019-04-14] MEDS: ALPRAZolam 0.25 MG TAB PO PRN ×2 (00:04→20:33)
[2019-04-14] MEDS: Morphine 4 MG/ML VIAL SLOW IVP PRN ×2 (00:18→15:44)
[2019-04-14] MEDS: Sodium Chloride 0.9% 1,000 ML IV SCH ×2 (01:54→18:47)
[2019-04-14] MEDS: HumaLOG 300 UNITS/3 ML VIAL SC PRN ×4 (04:54→20:33)
[2019-04-14 07:36] LABS: #Basophils 0.1 thou/uL (0.0-0.2); #Eosinphils 0.2 thou/uL (0.0-0.7); #Lymphocytes 2.1 thou/uL (1.20-3.40); #Monocytes 0.7 thou/uL (0.11-0.59); #Neutrophils 5.4 thou/uL (1.40-6.50); %Basophils 0.7 % (0.0-1.0); %Eosinophils 2.8 % (0.0-10.0); %Lymphocytes 24.7 % (21.0-51.0); %Monocytes 8.5 % (0.0-10.0); %Neutrophils 63.3 % (42.0-75.0); Hemoglobin 13.1 g/dL (12.0-16.0); Mean Corpuscular HGB CONC 33.5 g/dL (32.0-36.0); Mean Corpuscular Hemoglobin 28.9 pg (27.0-31.0); Mean Corpuscular Volume 86.3 fL (78.0-98.0); Mean Platelet Volume 9.2 fL (7.4-10.4); Platelet Count 287 thou/uL (130-400); RBC Distribution Width 12.8 % (11.5-14.5); Red Blood Cell (RBC) Count 4.51 mill/uL (4.20-5.40); White Blood Cell (WBC) Count 8.6 thou/uL (4.8-10.8)
[2019-04-14 07:42] LABS: Prothrombin Time 13.3 SEC (12.0-14.7)
[2019-04-14 08:03] LABS: ALT (SGPT) 200 U/L (8-55); AST (SGOT) 92 U/L (5-34); Albumin 3.8 g/dL (3.4-4.8); Alkaline Phosphatase 139 U/L (40-150); Anion Gap 13 mmol/L (10-20); BUN (Urea Nitrogen) 10 mg/dL (9.8-20.1); Bilirubin, Total 0.5 mg/dL (0.2-1.2); Calc. Creatinine Clearance 76 mL/min (70-130); Calcium 10.7 mg/dL (7.8-10.44); Carbon Dioxide 23 mmol/L (23-31); Chloride 104 mmol/L (98-107); Estimated GFR-MDRD 67; Globulin 2.7 g/dL (2.4-3.5); Glucose 233 mg/dL (83-110); Lipase 71 U/L (8-78); Potassium 4.1 mmol/L (3.5-5.1); Protein, Total 6.5 g/dL (6.0-8.3); Sodium 136 mmol/L (136-145)
--- NOTE | 2019-04-14 08:46 | CON ---
DATE OF CONSULTATION: REASON FOR CONSULTATION: Pancreatitis. HISTORY OF PRESENT ILLNESS: Ms. Samayoa is a 73-year-old female, who is admitted with pancreatitis, [id number]. She has been here in the past with this back in 2017, and I actually did see her at that time. She had changes of chronic pancreatitis, and further evaluation with MRI and endoscopy recommended. 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 Last year in February, she was in the hospital again for couple of days in November of 2018 with pancreatitis again, and she was discharged to follow up with her primary doctors in [facility]. Apparently, she lives in either [place] or [facility], but spends a lot of time with a friend over here in [facility]. She reports on this admission, she became ill about Saturday about 3 days ago with epigastric pain radiating to her back, left abdomen, very similar to her attacks in the past. In the emergency room, she received some IV fluids and pain medication. She had a lipase of 1243, on the that dropped to 146. Today, however, when I tried to advance her diet, it went back up to 335. Additionally, her AST and ALT were increased today from mildly elevated on the at 72 and 40 to 272 and 306 today. The patient's calcium is 10. The patient's bilirubin is normal at 0.5. White count was 10.6, hemoglobin was 12.8, platelet count was 292. The patient was in recurrent pain today, was placed back on IV fluids and n.p.o. status. Apparently, she states her pain is better. PAST MEDICAL HISTORY: Sbeef-ho-grppzof pancreatitis. The patient states she has been hospitalized 6 times with pancreatitis in 2016 and present. She has had a stone noted in the pancreatic duct and apparently she has seen a sales representative livestock in [place]. It has been set up to have a removal of pancreatic duct stone. The patient notes her first bout of pancreatitis was related to biliary colic, but she had a heart attack at the same time, had a cardiac stent and that was in 2015. Then when she was waiting to get over her heart attack and have her cholecystectomy, she had another bout of cholecystitis in the Spring, , and had her gallbladder removed. She states she does not drink alcohol now. Her sales representative livestock in the past couple of years told her she should not drink at all, so she does not. She was a heavy drinker of alcohol until 1979 when she stopped, then only would drink occasional weekends when she went out for dinner. She notes no other family history of pancreatic disease. Medical history includes history of myocardial infarction, cardiac stent, diabetes, reflux, obesity, CVA in 2006, osteoarthritis, degenerative disk disease. PAST SURGICAL HISTORY: Coronary stent, cataract surgery, , and cholecystectomy. FAMILY HISTORY: Father at 59 from lung cancer, mother at 92 from old age. SOCIAL HISTORY: She is nonsmoker. She occasionally uses a glass of wine at dinner, but none in the past years, states she has not had any at all. She states she does not use drugs. MEDICATIONS: 1. Tylenol. 2. Xanax. 3. Ecotrin. 4. Lipitor. 5. Lovenox. 6. Neurontin. 7. Humalog sliding scale. 8. Cozaar. 9. Glucophage. 10. Morphine. 11. Zofran. HOME MEDICATIONS: 1. Morphine. 2. Protonix. 3. Metoprolol. 4. Insulin sliding scale. 5. Gabapentin. REVIEW OF SYSTEMS: SKIN: Negative for rashes or lesions. GENERAL: Negative for weight loss. GI: Negative for nausea or vomiting. Negative for diarrhea. Negative for hematochezia, melena, hematemesis, dysphagia, or odynophagia. She denies any chronic abdominal pain between bouts of pancreatitis. She denies any chest pain, shortness of breath, or dyspnea on exertion. PHYSICAL EXAMINATION: GENERAL: The patient is resting comfortably in bed. VITAL SIGNS: Temperature is 97.8, pulse is 90, blood pressure 130/83. LUNGS: Clear. HEART: Regular without clicks, rubs, or murmurs. ABDOMEN: Soft and nontender. There is no palpable hepatomegaly. There is a hernia present which is reducible, midline, incisional. EXTREMITIES: No clubbing, cyanosis, or edema. LABORATORY DATA: As per HPI. ASSESSMENT: 1. Bsyka-fo-lgnzxpb pancreatitis. She has known stone in the pancreatic duct, which usually seen as a sequela of chronic pancreatitis, may or may not be contributing to her chronic recurrent pancreatitis, more likely some type of stricture in the distal bile duct would be. She has planned some procedure for the stone removed from the pancreatic duct in [place]. There is a note from [place] [employer] showing it is scheduled for the of this month and that is a reasonable course, she has a lot of problems recently. 2. With regard to the elevated LFTs today, one wonders about some type of transient biliary obstruction. It would be reasonable to get an MRCP and will suggest that to her. Previously, when I have suggested this study, she has refused and left AMA. 3. She has a renal mass noted on CT scans, which she tells me she has a fuel handler in [place] who is watching this and has been stable overtime. We will defer further management of that to them, and if she refused MRI as long as her LFTs were coming down, and she is not showing any signs of biliary obstruction, we will definitely defer further management of her complicated pancreatic disease to her primary sales representative livestock in the [place] area who has been managing this. I did explain to the patient that there is no one here with the expertise to address the pancreatic duct stones. We would have to send her to [place], [facility], or [place] for these an since she is already set up in with a sales representative livestock in [place], I think it will be best to keep that plan as they are well-versed in her care there. Job ID: [id number]
[2019-04-14] MEDS ORDERED: Iothalamate Meglumine 60% 50 ML VIAL FS ONE (11:05)
[2019-04-14] MEDS ORDERED: Indomethacin 50 MG SUPP ONE (11:05)
[2019-04-14] MEDS: Aspirin 81 mg Enteric Coated Tablet PO SCH (11:30)
[2019-04-14] MEDS: Enoxaparin Sodium 40 MG/0.4 ML SYRINGE SC SCH (11:30)
[2019-04-14] MEDS ORDERED: Fentanyl 100 MCG/2 ML VIAL ONE (13:01)
[2019-04-14] MEDS ORDERED: SUGAMMADEX SODIUM 200 MG/2 ML VIAL ONE (13:02)
[2019-04-14] MEDS ORDERED: Lidocaine 1% PF 5 ML VIAL ONE (14:18)
[2019-04-14] MEDS ORDERED: Ondansetron PF 4 MG/2 ML Vial ONE (14:18)
[2019-04-14] MEDS ORDERED: PROPOFOL 200 MG/20 ML VIAL ONE (14:18)
[2019-04-14] MEDS ORDERED: Rocuronium Bromide 10 MG/ML (10ML VIAL) ONE (14:18)
[2019-04-14] MEDS ORDERED: Esmolol 100 MG/10 ML VIAL ONE (14:18)
[2019-04-14] MEDS ORDERED: Labetalol HCl 100 MG/20 ML VIAL ONE (14:18)
[2019-04-14] MEDS ORDERED: Dexamethasone 20 MG/5 ML VIAL ONE (14:18)
--- NOTE | 2019-04-14 14:33 | RAD ---
ERCP: HISTORY: Biliary obstruction. COMPARISON: MRI of prior day. FINDINGS: There are some filling defects of the distal ampulla. Mild intrahepatic and extrahepatic biliary dil atation. IMPRESSION: Dilated common bile duct with decompression after removal of stones. POS: DANAYH
[2019-04-14] MEDS: PARoxetine 20 MG TAB PO SCH (15:23)
--- NOTE | 2019-04-14 16:18 | OP ---
DATE OF PROCEDURE: 04/14/2019 PROCEDURES PERFORMED: Endoscopic retrograde cholangiopancreatography with sphincterotomy. INDICATION FOR PROCEDURE: Possible choledocholithiasis, pancreatic duct stones on imaging. DESCRIPTION OF PROCEDURE: After the risks and benefits of the procedure were explained to the patient including risks of bleeding, infection, perforation, reactions to anesthesia, aspiration, post ERCP pancreatitis and/or pain, informed consent was obtained. The patient was then taken to the endoscopy suite, where general anesthesia and endotracheal tube intubation was performed. Once the patient was adequately intubated and sedated, she was maneuvered into the prone position in anticipation for the ERCP. The standard duodenoscope was then introduced into the mouth with intubation of the esophagus, stomach, and the proximal small intestine with the findings listed below. The patient tolerated the procedure well with no immediate perioperative complications. Upon conclusion of the procedure, all equipment was removed from the patient and she was transferred to the PACU in satisfactory condition. FINDINGS: EGD findings: Of the limited views obtained of the esophagus, stomach, and the proximal small intestines, there was a minimal amount of increased mucosal erythema seen within the gastric antrum, but did not exhibit any underlying pathology. Otherwise, normal-appearing mucosa was seen in the proximal esophagus, mid esophagus, distal esophagus, gastric cardia, fundus, body and incisura. Normal-appearing mucosa was also seen within the duodenal bulb and second portion of the duodenum. There was no evidence of erosions, ulcerations, mass, lesions, or active/recent bleeding. ERCP findings: The ampulla was easily identified within the second portion of the duodenum and did exhibit a [id number] erythematous appearance to it. Using a 5 mm sphincterotome, the ampulla was then successfully cannulated with a guidewire, then placed within the extrahepatic and intrahepatic biliary tree to maintain position. Once the guidewire was in adequate position, the sphincterotome was advanced into the distal common bile duct with a cholangiogram performed at that time. Based on the cholangiogram, the common bile duct measured approximately 1 cm in diameter with no filling defects seen within the extrahepatic biliary tree. Both the extrahepatic and intrahepatic biliary tree filled nicely with no evidence of strictures or filling defects. Given the findings on MRCP for possible choledocholithiasis, a sphincterotomy was then performed with good hemostasis achieved during the maneuver. Upon completion of the maneuver, the sphincterotome was then exchanged for a 9 to 12 mm biliary balloon and exchanged over the guidewire in an exchange technique. Once the balloon was in adequate position, it was advanced to the mid common bile duct and inflated to 12 mm. Successive balloon sweeps were then performed, advancing the balloon further up into the common bile duct. No stones, sludge, or debris were seen extruding from the distal common bile duct during these maneuvers with adequate visualization of the common bile duct and with no debris obtained during the balloon sweeps and the procedure was then terminated with all equipment removed from the patient. A final cholangiogram was performed showing good drainage from the biliary tree. Upon completion, the patient was then transferred to PACU in satisfactory condition. IMPRESSION: 1. Mild dilation of the common bile duct measuring 1 cm (which can be normal in the patient's post cholecystectomy). 2. No evidence of biliary sludge, stones, or stone debris. 3. The pancreatic duct was not visualized during this examination. RECOMMENDATIONS: 1. Would continue to monitor clinically for signs of post ERCP pancreatitis. 2. Would repeat LFTs in the morning to evaluate for downtrending/resolution of her transaminitis. 3. Advance diet as tolerated starting with clear liquid diet. 4. If the patient continues to improve clinically with downtrending LFTs, then she could be potentially discharged to home with followup with the outpatient GI Clinic in [place] for evaluation of the pancreatic duct. However, if she does exhibit uptrending transaminitis despite the procedure today, then transfer to a higher level of care and evaluation of the pancreatic duct could be considered at that time. We will continue to follow. Please call with any questions. Job ID: [id number]
--- NOTE | 2019-04-14 17:27 | PDOC.HOSPP ---
- Subjective Subjective: Patient reported she felt much better this morning. Pain had largely resolved. - Objective Vital Signs & Weight: Vital Signs (12 hours) Temp Pulse Resp BP BP Pulse Ox 04/14/19 16:00 98.1 F 96 18 147/77 H 04/14/19 15:05 98.3 F 85 17 161/80 H 94 L 04/14/19 11:00 97.9 F 103 H 18 107/71 95 04/14/19 08:00 97.5 F L 103 H 18 117/77 93 L Weight Weight 178 lb 9.191 oz I&O: 04/13/19 04/14/19 04/15/19 06:59 06:59 06:59 Intake Total 1560 1275 Balance 1560 1275 Result Diagrams: 04/14/19 07:25 04/14/19 07:25 Additional Labs: Accuchecks 04/14/19 04/14/19 04/14/19 16:56 11:07 04:13 POC Glucose 256 H 243 H 256 H 04/13/19 19:07 POC Glucose 220 H ROS - Medication Medications: Active Medications Generic Name Dose Route Start Last Admin Trade Name Freq PRN Reason Stop Dose Admin Acetaminophen 650 mg 04/11/19 08:56 04/12/19 21:58 Tylenol PO 650 mg Q4H PRN Administration Mild Pain (1-3) Alprazolam 0.25 mg 04/11/19 10:03 04/14/19 00:04 Xanax PO 0.25 mg DAILYPRN PRN Administration Anxiety Aspirin 81 mg 04/11/19 09:00 04/14/19 11:30 Ecotrin PO Not Given DAILY RUSSELL Atorvastatin Calcium 10 mg 04/11/19 21:00 04/13/19 20:20 Lipitor PO Not Given HS RUSSELL Enoxaparin Sodium 40 mg 04/11/19 09:00 04/14/19 11:30 Lovenox SC Not Given 0900 [facility] Sodium Chloride 1,000 mls @ 75 mls/hr 04/13/19 15:30 04/14/19 01:54 Normal Saline 0.9% IV 1,000 mls .[id number] RUSSELL Administration Insulin Human Lispro 0 units 04/11/19 10:07 04/14/19 17:20 Humalog SC 6 unit .MODERATE SLIDING SC PRN Administration Moderate Correctional Scale Insulin Human Lispro 0 units 04/11/19 10:07 04/11/19 20:04 Humalog SC 3 unit .BEDTIME SLIDING SC PRN Administration Bedtime Correctional Scale Losartan Potassium 25 mg 04/11/19 21:00 04/13/19 20:20 Cozaar PO Not Given HS RUSSELL Melatonin 3 mg 04/11/19 10:08 04/11/19 22:03 Melatonin PO 3 mg HS PRN Administration Insomnia Morphine Sulfate 4 mg 04/12/19 16:56 04/14/19 15:44 Morphine SLOW IVP 4 mg Q4H PRN Administration Severe Pain (7-10) Ondansetron HCl 4 mg 04/12/19 22:53 04/12/19 23:02 Zofran IVP 4 mg Q6H PRN Administration Nausea/Vomiting Pantoprazole Sodium 40 mg 04/12/19 09:00 04/14/19 15:23 Protonix PO 40 mg DAILY RUSSELL Administration Paroxetine HCl 40 mg 04/12/19 09:00 04/14/19 15:23 Paxil PO 40 mg DAILY RUSSELL Administration - Exam NAD, awake alert Heart: RRR, no murmur, no gallops, no rubs, normal peripheral pulses Respiratory: CTAB, no wheezes, no rales, no ronchi, normal chest expansion, no tachypnea, normal percussion Gastrointestinal: soft, non-tender, non-distended, normal bowel sounds, no palpable masses, no hepatomegaly, no splenomegaly, no bruit Musculoskeletal: normal tone, normal strength Psychiatric: normal affect, normal behavior, A&O x 3 Hosp A/P (1) Acute pancreatitis Code(s): K85.90 - ACUTE PANCREATITIS WITHOUT NECROSIS OR INFECTION, UNSP Status: Acute (2) CAD (coronary artery disease) Code(s): I25.10 - ATHSCL HEART DISEASE OF [place] CORONARY ARTERY W/O ANG PCTRS Status: Chronic (3) Diabetes type 2, controlled Code(s): E11.9 - TYPE 2 DIABETES MELLITUS WITHOUT COMPLICATIONS Status: Chronic (4) Dyslipidemia Code(s): E78.5 - HYPERLIPIDEMIA, UNSPECIFIED Status: Chronic (5) Hypertension Code(s): I10 - ESSENTIAL (PRIMARY) HYPERTENSION Status: Chronic (6) Obesity (BMI 30.0-34.9) Code(s): E66.9 - OBESITY, UNSPECIFIED Status: Chronic (7) Anxiety Code(s): F41.9 - ANXIETY DISORDER, UNSPECIFIED Status: Acute - Plan Discussed with GI. She had ERCP today. No stone was found. Sphincterotomy performed. Duct was swept with no sludge or stones seen. May be passing stones from the pancreatic duct intermittently or may still be having some problems with more proximal duct stones. Will watch overnight to ensure she does not have any post ERCP pancreatitis. If she is tolerating po's tomorrow, can likely DC to follow up in [place]. Blood sugars running a little high, but her intake has been up and down with her symptoms and procedures. Have not been overly aggressive in pursuing it to avoid hypoglycemia.
[2019-04-14] MEDS: Atorvastatin Calcium 20 MG TAB PO SCH (20:31)
[2019-04-14] MEDS: Losartan 25 MG TAB PO SCH (20:32)
[2019-04-14] MEDS: Acetaminophen 325 MG TAB PO PRN (20:32)
[2019-04-14] MEDS: Melatonin 3 MG TAB PO PRN (20:32)
[2019-04-15] MEDS: Sodium Chloride 0.9% 1,000 ML IV SCH (05:40)
[2019-04-15] MEDS: HumaLOG 300 UNITS/3 ML VIAL SC PRN ×4 (05:41→20:40)
[2019-04-15] MEDS: PARoxetine 20 MG TAB PO SCH (08:07)
[2019-04-15] MEDS: Aspirin 81 mg Enteric Coated Tablet PO SCH (08:07)
[2019-04-15] MEDS: Enoxaparin Sodium 40 MG/0.4 ML SYRINGE SC SCH (08:08)
[2019-04-15 10:09] LABS: ALT (SGPT) 126 U/L (8-55); AST (SGOT) 28 U/L (5-34); Albumin 3.9 g/dL (3.4-4.8); Alkaline Phosphatase 122 U/L (40-150); Anion Gap 14 mmol/L (10-20); BUN (Urea Nitrogen) 10 mg/dL (9.8-20.1); Bilirubin, Total 0.4 mg/dL (0.2-1.2); Calc. Creatinine Clearance 69 mL/min (70-130); Calcium 10.7 mg/dL (7.8-10.44); Carbon Dioxide 22 mmol/L (23-31); Chloride 102 mmol/L (98-107); Estimated GFR-MDRD 60; Globulin 2.7 g/dL (2.4-3.5); Glucose 351 mg/dL (83-110); Lipase 125 U/L (8-78); Potassium 4.1 mmol/L (3.5-5.1); Protein, Total 6.6 g/dL (6.0-8.3); Sodium 134 mmol/L (136-145)
[2019-04-15] MEDS ORDERED: Ibuprofen 200 MG TAB PO PRN (15:16)
[2019-04-15] MEDS ORDERED: NPH, Human Insulin Isophane 300 UNIT/3 ML VIAL SC SCH (15:30)
--- NOTE | 2019-04-15 16:32 | PDOC.HOSPP ---
- Subjective Encounter Date: 04/15/19 Encounter Time: 16:00 Subjective: Patient seen and examined for Acute Pancreatitis. Nausea +. Upper abd pain after starting clear liqd diet. Had 1 BM earlier. No other complaints. No overnight events - Objective Vital Signs & Weight: Vital Signs (12 hours) Temp Pulse Resp BP Pulse Ox 04/15/19 12:00 97.4 F L 04/15/19 07:51 97.4 F L 78 16 105/66 99 Weight Weight 178 lb 9.191 oz I&O: 04/14/19 04/15/19 04/16/19 06:59 06:59 06:59 Intake Total 1275 1860 980 Balance 1275 1860 980 Result Diagrams: 04/14/19 07:25 04/15/19 09:35 Additional Labs: Accuchecks 04/15/19 04/15/19 04/14/19 11:40 04:08 19:37 POC Glucose 398 H 281 H 421 H 04/14/19 16:56 POC Glucose 256 H Radiology Reviewed by me: Yes (CT abd - Pancreatitis) ROS - Review of Systems Cardiovascular: denies: chest pain, palpitations, orthopnea, paroxysmal noc. dyspnea, edema, light headedness, other Gastrointestinal: denies: nausea, vomitting, abdominal pain, diarrhea, constipation, melena, hematochezia, other - Medication Medications: Active Medications Generic Name Dose Route Start Last Admin Trade Name Freq PRN Reason Stop Dose Admin Acetaminophen 650 mg 04/11/19 08:56 04/14/19 20:32 Tylenol PO 650 mg Q4H PRN Administration Mild Pain (1-3) Alprazolam 0.25 mg 04/11/19 10:03 04/14/19 20:33 Xanax PO 0.25 mg DAILYPRN PRN Administration Anxiety Aspirin 81 mg 04/11/19 09:00 04/15/19 08:07 Ecotrin PO 81 mg DAILY RUSSELL Administration Atorvastatin Calcium 10 mg 04/11/19 21:00 04/14/19 20:31 Lipitor PO 10 mg HS RUSSELL Administration Enoxaparin Sodium 40 mg 04/11/19 09:00 04/15/19 08:08 Lovenox SC 40 mg 0900 RUSSELL Administration Sodium Chloride 1,000 mls @ 75 mls/hr 04/13/19 15:30 04/15/19 05:40 Normal Saline 0.9% IV 1,000 mls .[id number] RUSSELL Administration Ibuprofen 400 mg 04/15/19 15:16 04/15/19 15:49 Motrin PO 400 mg Q6H PRN Administration Pain Insulin Human Lispro 0 units 04/11/19 10:07 04/15/19 12:17 Humalog SC 10 unit .MODERATE SLIDING SC PRN Administration Moderate Correctional Scale Insulin Human Lispro 0 units 04/11/19 10:07 04/14/19 20:33 Humalog SC 5 unit .BEDTIME SLIDING SC PRN Administration Bedtime Correctional Scale Losartan Potassium 25 mg 04/11/19 21:00 04/14/19 20:32 Cozaar PO 25 mg HS RUSSELL Administration Melatonin 3 mg 04/11/19 10:08 04/14/19 20:32 Melatonin PO 3 mg HS PRN Administration Insomnia Morphine Sulfate 4 mg 04/12/19 16:56 04/14/19 15:44 Morphine SLOW IVP 4 mg Q4H PRN Administration Severe Pain (7-10) Ondansetron HCl 4 mg 04/12/19 22:53 04/12/19 23:02 Zofran IVP 4 mg Q6H PRN Administration Nausea/Vomiting Pantoprazole Sodium 40 mg 04/12/19 09:00 04/15/19 08:07 Protonix PO 40 mg DAILY RUSSELL Administration Paroxetine HCl 40 mg 04/12/19 09:00 04/15/19 08:07 Paxil PO 40 mg DAILY RUSSELL Administration - Exam NAD Heart: RRR, no rubs Respiratory: CTAB, no ronchi Gastrointestinal: soft, non-distended, normal bowel sounds, tender to palpation (in upper abd) Extremities: no edema Hosp A/P (1) SIRS (systemic inflammatory response syndrome) Code(s): R65.10 - SIRS OF NON-INFECTIOUS ORIGIN W/O ACUTE ORGAN DYSFUNCTION Status: Acute (2) Acute pancreatitis Code(s): K85.90 - ACUTE PANCREATITIS WITHOUT NECROSIS OR INFECTION, UNSP Status: Acute (3) CAD (coronary artery disease) Code(s): I25.10 - ATHSCL HEART DISEASE OF [place] CORONARY ARTERY W/O ANG PCTRS Status: Chronic (4) Hypertension Code(s): I10 - ESSENTIAL (PRIMARY) HYPERTENSION Status: Chronic (5) Obesity (BMI 30.0-34.9) Code(s): E66.9 - OBESITY, UNSPECIFIED Status: Chronic (6) DM2 (diabetes mellitus, type 2) Status: Chronic Qualifiers: Chronic kidney disease stage: stage 2 (mild) (7) Other issues per previous notes - Plan Resume NPH DC IVF (Pt does not have IV access) Cont PPI Cont to monitor Advance diet as tolerated DC home in 24 hr if stable
[2019-04-15] MEDS ORDERED: Fentanyl 100 MCG/2 ML VIAL SLOW IVP PRN (16:45)
[2019-04-15] MEDS: Morphine 4 MG/ML VIAL SLOW IVP PRN (17:47)
[2019-04-15] MEDS ORDERED: traMADol HCl 50 MG TAB PO PRN (18:19)
[2019-04-15] MEDS ORDERED: metFORMIN XR 500 MG TAB PO SCH (19:15)
--- NOTE | 2019-04-15 19:53 | PRG ---
DATE OF SERVICE: 04/15/2019 SUBJECTIVE: Ms. Samayoa is feeling better. She had a little bit of pain today, but that is gone now. OBJECTIVE: VITAL SIGNS: Temperature is 97.4, pulse 78, and blood pressure 105/66. ABDOMEN: Soft and nontender. LABORATORY DATA: Labs today notable for a sodium 134, potassium 4.1, BUN and creatinine are , glucose was 351. ALT is 126, AST is 128, bilirubin is 0.4, and lipase is 125. ASSESSMENT: 1. Acute on chronic pancreatitis. She has a pancreatic duct stone, that can be removed here. We do not do advanced pancreatic work practice. She already has an appointment on the to do that in [place]. She did have an ERCP here yesterday. As her LFTs went up, it was concern that possibly she had a part of that stone in the past was blocking the biliary tree as well that possibly she had actual stones in her biliary tree. Neither was found to be the case, the biliary tree was completely clear and she probably had passed a small bit of stone or sludge. 2. Elevated glucose. She is off her metformin that needs to be restarted. It was held for her ERCP. RECOMMENDATIONS: The patient can stay on the liquid diet and go home and follow up with the buckshot swage operator in [facility]. If she has recurrent pain here, I would transfer her there directly. His name and number and that of his practicing PA are in the chart and may just require that she be transferred there directly for inpatient procedure if she keeps having recurrent pain. We will follow from a distance. If I can be of further assistance in the patient's care, please do not hesitate to contact me. Job ID: [id number]
[2019-04-15] MEDS: Losartan 25 MG TAB PO SCH (20:39)
[2019-04-15] MEDS: Atorvastatin Calcium 20 MG TAB PO SCH (20:39)
[2019-04-15] MEDS: Melatonin 3 MG TAB PO PRN (20:39)
[2019-04-15] MEDS: Acetaminophen 325 MG TAB PO PRN (20:40)
[2019-04-15] MEDS: ALPRAZolam 0.25 MG TAB PO PRN (20:40)
[2019-04-16] MEDS: HumaLOG 300 UNITS/3 ML VIAL SC PRN ×2 (05:54→12:04)
[2019-04-16] MEDS: PARoxetine 20 MG TAB PO SCH (07:54)
[2019-04-16] MEDS: Aspirin 81 mg Enteric Coated Tablet PO SCH (07:56)
[2019-04-16] MEDS: Enoxaparin Sodium 40 MG/0.4 ML SYRINGE SC SCH (07:58)
[2019-04-16] MEDS ORDERED: metFORMIN XR 500 MG TAB PO SCH (08:00)
[2019-04-16] MEDS ORDERED: Sodium Chloride 0.9% 1,000 ML IV SCH (08:15)
[2019-04-16] MEDS ORDERED: NPH, Human Insulin Isophane 300 UNIT/3 ML VIAL SC SCH ×2 (09:00→21:00)
[2019-04-16 11:41] VITALS: BP 127/77; TEMP 97.9
--- NOTE | 2019-04-17 09:33 | DIS ---
DATE OF ADMISSION: 04/10/2019 DATE OF DISCHARGE: 04/16/2019 DISCHARGE DISPOSITION: Home. DISCHARGE FOLLOWUP: 1. Follow up with primary care physician, Dr. Dr. Kathia Sabillon, fax number [phone]. 2. Follow up with Gastroenterology, Dr. Contreras in 2 to 3 weeks. ALLERGIES: THE PATIENT IS ALLERGIC TO HYDROCODONE, PENICILLIN, STRAWBERRY, AND SULFA. DISCHARGE MEDICATIONS: Same as admission medications with addition of tramadol as needed for pain. DISCHARGE CONDITION: The patient was seen and examined on the day of discharge. Denies any new complaints. No chest pain, shortness of breath, or palpitations reported. The patient is tolerating liquid diet. INPATIENT SOLID WASTE DISPOSAL MANAGER: Gastroenterology, Dr. Contreras. DIAGNOSTIC TESTS: 1. On April 13, 2019, the patient underwent MRCP that showed suspected 9.9 mm stone at the main pancreatic duct and common bile duct junction with mild pancreatitis. 2. On April 14, 2019, the patient underwent ERCP that showed mild dilatation of the common bile duct measuring 1 cm without any evidence of biliary sludge, stones, or stone debris. Pancreatic duct was not visualized during this examination. BRIEF HOSPITAL COURSE: The patient is a 73-year-old female with pancreatitis in the past, presented to the hospital with abdominal discomfort. Her workup in the emergency room was consistent with acute pancreatitis with lipase of 1243 on admission. Please refer to the History and Physical for further details. The patient was admitted to the hospital with a diagnosis of acute pancreatitis. The MRCP was consistent with stone at the common bile duct and the pancreatic duct confluence. She underwent ERCP as discussed above. No stones were identified on the ERCP. Her lipase has improved to 125. Bilirubin is normal on the day of discharge. AST improved to 28 from 272. ALT improved to 126 from 306. Abdominal pain has significantly improved. She has been cleared by Gastroenterology for discharge. FINAL DIAGNOSES: 1. Systemic inflammatory response syndrome secondary to acute pancreatitis. 2. Suspected choledocholithiasis on MRCP. However, ERCP was negative. 3. Coronary artery disease. 4. Hypertension. 5. Obesity with a BMI of 31.6. 6. Diabetes mellitus type 2. 7. History of pancreatitis in the past. 8. CT abdomen showing hypodense lesion in the left kidney. Primary care physician advised to follow. 9. Gastroesophageal reflux disease. 10. History of cerebrovascular accident. 11. Hyperlipidemia. 12. Anxiety. PLAN: Plan of care was discussed with the patient in detail. She stated understanding. TIME SPENT: Total time coordinating the discharge of this patient was 33 minutes. Job ID: [id number]
== END 2019-04-16 15:20 | disposition home or self-care (01) | DRG 439 ==
LOC: ERS 05:46 → T4-B 08:22
PROVIDERS: ADMIT Internal Medicine; ATTEND Internal Medicine
PROC: 0F798ZZ Dilation of Common Bile Duct, Via Natural or Artificial Opening Endoscopic (ICD-10-PCS; principal; 2019-04-14)
PROC: BF131ZZ Fluoroscopy of Gallbladder and Bile Ducts using Low Osmolar Contrast (ICD-10-PCS; 2019-04-14)
DX: K85.90 Acute pancreatitis without necrosis or infection, unspecified (principal); R65.10 Systemic inflammatory response syndrome (SIRS) of non-infectious origin without acute organ dysfunction; I10 Essential (primary) hypertension; I25.10 Atherosclerotic heart disease of native coronary artery without angina pectoris; E11.9 Type 2 diabetes mellitus without complications; K21.9 Gastro-esophageal reflux disease without esophagitis; E66.9 Obesity, unspecified; E78.5 Hyperlipidemia, unspecified; M19.90 Unspecified osteoarthritis, unspecified site; K86.1 Other chronic pancreatitis; F41.9 Anxiety disorder, unspecified; I25.2 Old myocardial infarction; Z68.31 Body mass index [BMI] 31.0-31.9, adult; Z86.73 Personal history of transient ischemic attack (TIA), and cerebral infarction without residual deficits; Z88.6 Allergy status to analgesic agent; Z88.0 Allergy status to penicillin; Z88.2 Allergy status to sulfonamides; Z88.8 Allergy status to other drugs, medicaments and biological substances; Z95.5 Presence of coronary angioplasty implant and graft; Z98.49 Cataract extraction status, unspecified eye; Z90.49 Acquired absence of other specified parts of digestive tract
CPT/HCPCS: 36415; 36416; 74177; 74181; 74330; 80053; 81003; 83690; 85025; 85610; 93005; 93010; 94760; 96361; 96374; 96375; 96376; J1100; J1610; J1650; J1815; J1956; J2001; J2270; J2405; J2704; J3010; J3360; Q9967; S0028